=== PATIENT | male | born 1990 ===

== ENCOUNTER 2020-07-09 09:03 | Day surgery (SDC) | payer BC, MEDICAID, SELFPAY ==
[2020-07-05 13:59] VITALS: BMI 33.1
--- NOTE | 2020-07-07 13:57 | HO.ANESPROP2 ---
Documented by User: Rosio Bernard 07/07/20 13:57 HPI - Anesthesia Eval Consult details Narrative: 29yo M for Upper Endoscopy [facility] Past Medical History Medical History (Updated 07/09/20 @ 09:43 by Georgina Pollard) ADHD Allergic rhinitis Anxiety and depression Asthma Carpal tunnel syndrome GERD (gastroesophageal reflux disease) Learning disability Obesity (BMI 30-39.9) Family History Family History Father Medical history unknown Mother Breast cancer Hypertension Surgical History Surgical History History of eye surgery History of placement of ear tubes History of tonsillectomy Social History Social History Smoking Status: Never smoker Use of substances other than those prescribed or required for medical reasons: No Have you been hit, kicked, punched, or otherwise hurt by someone within the past year? If so, by whom?: No Advance Directives: No Advance Directives Information Provided: No Advance Directives on File: No Meds Allergies Allergy/AdvReac Type Severity Reaction Status Date / Time seafood Allergy Swelling Verified 07/09/20 09:27 shellfish derived Allergy Swelling Verified 07/09/20 09:26 Home Medications Medication Instructions Recorded Confirmed Type albuterol sulfate [ProAir HFA] 1 puff INHALATION QID PRN 07/05/20 07/05/20 History omeprazole 40 mg PO DAILY 07/05/20 07/05/20 History Exam Exam Date and Time: July 07, 2020 1357 Height,Weight and Vital Signs: Height 5 ft 5 in Weight 90.265 kg Assessment and Plan Assessment Anesthesia Assessment: Chart Reviewed Documented by User: Georgina Pollard 07/09/20 09:47 [facility] Past Medical History Medical History (Updated 07/09/20 @ 09:43 by Georgina Pollard) ADHD Allergic rhinitis Anxiety and depression Asthma Carpal tunnel syndrome GERD (gastroesophageal reflux disease) Learning disability Obesity (BMI 30-39.9) Family History Family History Father Medical history unknown Mother Breast cancer Hypertension Family history of problems with anesthesia: No Surgical History Surgical History History of eye surgery History of placement of ear tubes History of tonsillectomy History of Problems with Anesthesia: No Social History Social History Smoking Status: Never smoker Use of substances other than those prescribed or required for medical reasons: No Have you been hit, kicked, punched, or otherwise hurt by someone within the past year? If so, by whom?: No Advance Directives: No Advance Directives Information Provided: No Advance Directives on File: No Meds Allergies Allergy/AdvReac Type Severity Reaction Status Date / Time seafood Allergy Swelling Verified 07/09/20 09:27 shellfish derived Allergy Swelling Verified 07/09/20 09:26 Home Medications Medication Instructions Recorded Confirmed Type albuterol sulfate [ProAir HFA] 1 puff INHALATION QID PRN 07/05/20 07/05/20 History omeprazole 40 mg PO DAILY 07/05/20 07/05/20 History Exam Height,Weight and Vital Signs: Vital Signs Temp Pulse Resp BP Pulse Ox 07/09/20 09:28 98.2 F 64 18 103/72 99 Airway Mallampati Class: III TM Dist: >3cm Neck ROM: Full Heart: RRR Lungs: CTAB Assessment and Plan Assessment Anesthesia Assessment: Anesthesia Plan Discussed and Chart Reviewed Final Anesthetic Review NPO: Yes ASA Class: II Final Preanesthetic Review: No Changes in Pt Med Stat, Meds/Allgs Chart Reviewed, Consent Obtained/Reviewed and Anes Risks/Benef Reviewed Patient Risk: Low Procedure Risk: Low Assessment/Block/Sedation in SS: Assess/Block/Sedation-SS Anesthetic Plan Anesthetic Plan: MAC: Disposition: Standard PACU
[2020-07-09 09:28] VITALS: BP 103/72; PULSE 64; RESP 18; TEMP 36.8; O2SAT 99
[2020-07-09] MEDS: Lactated Ringers 1,000 ML 100 ML IVCONT (09:42)
--- NOTE | 2020-07-09 09:54 | MHC.SHP ---
Pre-Procedural Eval Section A The patient is an INPATIENT: No Changes since office visit: No Cold of Flu in the past 2 weeks, No New Medical Problems, No Changes in Medication and No Patient answered all questions The History & Physical has been completed within 30 days and I have reviewed it.: Yes Section B Chief Complaint: GERD Allergies: Allergies Allergy/AdvReac Type Severity Reaction Status Date / Time seafood Allergy Swelling Verified 07/09/20 09:27 shellfish derived Allergy Swelling Verified 07/09/20 09:26 Plan I have reviewed the history and physical and performed a pertinent physical examination on my patient. No changes have occurred unless specified.
--- NOTE | 2020-07-09 10:06 | PM.OP ---
Brief Operative Note Date of Service: 07/09/20 Pre-op diagnosis: gerd Post-op diagnosis: same Procedure: egd Surgeon: Ramin Hedrick Anesthesia: MAC and local Estimated blood loss (mL): 5 Pathology: other (bxs antrum and egj) Condition: stable Disposition: PACU
[2020-07-09 10:08] VITALS: BP 106/50; PULSE 75; RESP 16; TEMP 36.1; O2SAT 98
--- NOTE | 2020-07-09 10:19 | OP_ITS ---
SURGEON: Ramin Hedrick MD INDICATIONS: Gastroesophageal reflux disease. PREOPERATIVE DIAGNOSIS: POSTOPERATIVE DIAGNOSIS: PROCEDURE PERFORMED: Upper endoscopy with biopsy. ESTIMATED BLOOD LOSS: COMPLICATIONS: ANESTHESIA: ASSISTANTS: SPECIMENS: MEDICATIONS: Monitored anesthesia care. DESCRIPTION OF PROCEDURE: History and physical performed. The risks and benefits of the procedure were explained to the patient. Informed consent was obtained. The patient was placed in the left lateral decubitus position. The Olympus video gastroscope was introduced into the esophagus, stomach, and duodenum. Examination was performed and the scope was removed. He tolerated the procedure well and was taken to recovery area in stable condition. FINDINGS: ESOPHAGUS: The esophagus was normal. There was a small sliding hiatal hernia. Biopsies were obtained from the EG junction. There was no esophagitis. Stomach: Stomach showed no evidence of masses, ulcers, or polyps. There was some retained food in the stomach. Antral biopsies were obtained to rule out H pylori. Duodenum: The bulb and second portion were normal. IMPRESSION: Gastroesophageal reflux disease. RECOMMENDATIONS: 1. Follow up the biopsy results. 2. Continue proton pump inhibitor. MD CRISTY Mcmahon/BARTOLO / [id number]
[2020-07-09 10:23] VITALS: BP 103/68; PULSE 60; RESP 16; TEMP 36.1; O2SAT 99
--- NOTE | 2020-07-09 10:36 | HO.POSTANES ---
Post Anesthesia Evaluation Post Anesthesia Evaluation Vital Signs: Vital Signs Temp Pulse Resp BP Pulse Ox 07/09/20 10:23 97 F 60 16 103/68 99 07/09/20 10:08 97 F 75 16 106/50 L 98 07/09/20 09:28 98.2 F 64 18 103/72 99 Anesthesia: Monitored Mental Status: Awake Pain Control: Satisfactory Nausea/Vomiting: None Hydration: Adequate Anesthesia-Related Issues: No Anes. Related Issues
== END 2020-07-09 10:53 ==
LOC: HO.SSS 09:05
PROVIDERS: PCP Internal Medicine; Visit Provider Internal Medicine Gastroenterology
PROC: 0DJ08ZZ Inspection of Upper Intestinal Tract, Via Natural or Artificial Opening Endoscopic (ICD-10-PCS; CPT 43235; principal; 2020-07-09 10:10)
DX: K21.00 Gastro-esophageal reflux disease with esophagitis, without bleeding (principal); K44.9 Diaphragmatic hernia without obstruction or gangrene; Z79.899 Other long term (current) drug therapy
CPT/HCPCS: 43239; 88305; 88342; J3010

== ENCOUNTER 2022-10-20 07:46 | Outpatient (REF) | payer OTHER, SELFPAY ==
[2022-10-20 08:10] LABS: MANUAL DIFF FLAG NO
[2022-10-20 08:19] LABS: Basophils Percent Auto 0.6 % (0-2); Eosinophils Absolute Auto 0.6 X10*3/uL (0.0-0.4); Eosinophils Percent Auto 8.7 % (0-4); Hematocrit 52.8 % (42.0-52.0); Hemoglobin 17.7 g/dl (14.0-18.0); Imm Gran Abs Auto 0.02 X10*3/uL (0.00-0.03); Imm Gran Pct Auto 0.3 % (0.0-0.4); Lymphocytes Absolute Auto 1.7 X10*3/uL (1.2-4.9); Lymphocytes Percent Auto 24.5 % (20-40); Mean Corpuscular HGB Conc 33.5 g/dl (31.0-36.0); Mean Corpuscular Hemoglobin 30.3 pg (27.0-33.0); Mean Corpuscular Volume 90.4 fL (80.0-98.0); Mean Platelet Volume 9.8 fL (9.4-12.4); Monocytes Absolute Auto 0.6 X10*3/uL (0.1-1.2); Monocytes Percent Auto 8.4 % (2-11); Neutrophils Absolute Auto 4.1 x10*3/uL (2.0-8.3); Neutrophils Percent Auto 57.5 % (45-73); Platelet Count 233 X10*3/uL (160-400); Red Blood Count 5.84 X10*6/uL (4.60-5.80); Red Cell Distribution Width 13.5 % (11.0-16.0)
[2022-10-20 08:52] LABS: Alanine Aminotransferase 26 U/L (0-40); Albumin Level 4.5 g/dL (3.5-5.0); Alkaline Phosphatase 85 U/L (39-117); Anion Gap 14 (12-20); Aspartate Amino Transferase 20 U/L (5-37); Bilirubin Total 0.6 mg/dL (0.0-1.0); Blood Urea Nitrogen 20 mg/dL (9-16); Calcium 9.7 mg/dL (8.4-10.2); Carbon Dioxide 25 mmol/L (22-29); Chloride 105 mmol/L (96-108); Cholesterol 192 mg/dL; Estimated Glomerular Filt Rate > 60; Glucose Random 96 mg/dL (60-115); HDL Cholesterol 67 mg/dL; LDL Cholesterol Calculated 117 mg/dl; Sodium 139 mmol/L (135-145); Total Protein 7.3 g/dL (6.5-8.0); Triglycerides 40 mg/dL
[2022-10-20 09:26] LABS: Free T4 (Free Thyroxine) 0.86 ng/dL (0.71-1.85); Thyroid Stimulating Hormone 1.17 uIU/mL (0.32-4.0); Vitamin B12 462 pg/mL (200-900)
== END 2022-10-20 07:47 | disposition home or self-care (01) ==
LOC: HO.LAB 07:46
PROVIDERS: PCP Internal Medicine; Visit Provider Internal Medicine
DX: E66.9 Obesity, unspecified (principal); E78.00 Pure hypercholesterolemia, unspecified
CPT/HCPCS: 36415; 80053; 80061; 82607; 82746; 84439; 84443; 85025

== ENCOUNTER 2023-06-15 13:07 | Outpatient (AMB) | payer OTHER, SELFPAY ==
[2023-06-15 13:09] VITALS: BP 130/84; PULSE 75; O2SAT 99; BMI 32.1
--- NOTE | 2023-06-15 13:09 | A.OFFPC_ITS ---
Vital Signs 06/15/23 13:09 Height 5 ft 5 in Weight 193 lb BMI 32.1 BP 130/84 Blood Pressure Location Lt brachial Position Sitting Pulse 75 Pulse Source Pulse Oximeter Pulse Oximetry (%) 99 Oxygen Delivery Method Room Air Intake Visit Reasons: PE Dance Professor Required: No Teacher Education Director: Not Required per policy Accompanied by: Self / Same As Patient Allergies seafood Allergy (Verified 06/15/23 13:10) Swelling shellfish derived Allergy (Verified 06/15/23 13:10) Swelling Medication List - Last Reconciled 06/15/23 by Davonte Manzano MD albuterol sulfate 90 mcg/actuation (ProAir HFA) 1 puff inhalation QID PRN albuterol sulfate 2.5 mg (3 mL) inhalation QID PRN fluoxetine 40 mg PO QAM methylphenidate HCl ER (Concerta) 54 mg PO DAILY omeprazole 40 mg PO DAILY quetiapine 100 mg PO BEDTIME Tobacco use date assessed: 06/15/23 Dental Screening Dental Screen Date: 06/15/23 Did you have a dental visit in the last 12 months?: No Did you have a dental problem in the last 6 months where you did not have access to dental care?: No Was dental information given to patient?: Patient has dentist HPI PE HPI Details 32 year old obese male with ADHD, asthma , ANA MARIA and gerd. (reschedule for PE) need refill on nebulizer liquid uses only when sick which he did get a cold last month. follow up with psychiatrist Q 3 months and therapist Q week. noted weight loss PFSH Medical History Annual physical exam ADHD Asthma Allergic rhinitis Carpal tunnel syndrome Obesity (BMI 30-39.9) GERD (gastroesophageal reflux disease) Learning disability Surgical History History of eye surgery History of placement of ear tubes History of tonsillectomy Family History Father Medical history unknown Mother Breast cancer Hypertension Maternal Aunt Heart disease Maternal Grandmother Leukemia Paternal Grandmother Breast cancer Social History Housing: Apartment Alcohol intake: never Patient Tobacco Use Status: Never used Tobacco e-Cigarette/Vaping Use: Never Used Second Hand Smoke Exposure: No service: No Current occupational status: employed Current occupational exposures/hazards: No Cognitive needs: No Hearing needs: No Vision needs: No Questionnaire PHQ-9 Over the last 2 weeks, how often have you been bothered by any of the following problems? 1. Little interest or pleasure in doing things: not at all 2. Feeling down, depressed, or hopeless: not at all 3. Trouble falling or staying asleep, or sleeping too much: not at all 4. Feeling tired or having little energy: not at all 5. Poor appetite or overeating: not at all 6. Feeling bad about yourself - or that you are a failure or have let yourself or your family down: not at all 7. Trouble concentrating on things, such as reading the newspaper or watching television: not at all 8. Moving or speaking so slowly that other people could have noticed. Or the opposite - being so fidgety or restless that you have been moving around a lot more than usual: not at all 9. Thoughts that you would be better off or of hurting yourself in some way: not at all Total score: 0 Depression Screening Interpretation: Negative Depression Screening Done: Yes Source: Developed by Drs. Yuval Qiu, Leidy Mccall, Semaj Ruiz and colleagues, with an educational denise from [employer]. Thrive Questionnaire Date Thrive assessed: 06/15/23 I am a: Patient What is your living situation today?: I have a steady place to live Within the past 12 months, did the food you bought not last and you didn't have the money to get more?: Never true Within the past 12 months, did you worry whether your food would run out before you got money to buy more?: Never true Do you have trouble paying for medicines?: No Do you have trouble getting transportation to medical appointments?: No Do you have trouble paying your heating and electricity bill?: No Do you have trouble taking care of your child, family member or friend?: No Do you have trouble with day-to-day activities such as bathing, preparing meals, shopping, managing finances, etc.?: No Are you currently unemployed and looking for a job?: No Are you interested in more education?: No Please select the resources that you would like help with: None AUDIT C Alcohol Use Questionnaire (AUDIT-C) 1. How often do you have a drink containing alcohol?: Never 3. How often do you have six or more drinks on one occasion?: Never Total Score: 0 ANA MARIA-7 AMB Questionnaire ANA MARIA-7 Date ANA MARIA - 7 assessed: 06/15/23 Feeling nervous, anxious, or on edge: 0 = Not at all Not being able to stop or control worryin = Not at all Worrying too much about different things: 0 = Not at all Trouble relaxin = Not at all Being so restless that it is hard to sit still: 0 = Not at all Becoming easily annoyed or irritable: 0 = Not at all Feeling afraid as if something awful might happen: 0 = Not at all Total ANA MARIA-7 score (0-4 normal; 5-9 mild; 10-14 moderate; 15-21 severe): 0 Source: Developed by Drs. Yuval Qiu, Leidy Mccall, Semaj Ruiz and colleagues, with an educational denise from [employer]. Physical exam (Primary Care) Vital Signs: Last Vital Signs Pulse 75 06/15/23 13:09 BP 130/84 06/15/23 13:09 Pulse Ox 99 06/15/23 13:09 Oxygen Delivery Method Room Air 06/15/23 13:09 BMI result Body Mass Index 32.1 Tobacco/Smoking Status: Tobacco use Status Tobacco use date assessed 06/15/23 06/15/23 13:11 Patient Tobacco Use Status Never used Tobacco 06/15/23 13:11 e-Cigarette/Vaping Use Never Used 06/15/23 13:11 PHQ-9: PHQ-9 Score PHQ-9: Total score 0 06/15/23 13:11 Depression Screening Interpretation: Negative Thrive Assessment: Date of Thrive Assessment Date Thrive assessed 06/15/23 06/15/23 13:11 Const General: alert; No acute distress Eyes Conjunctivae: conjunctivae normal Resp Auscultation: clear to auscultation bilaterally Cardio Rate: regular rate Rhythm: regular rhythm GI Inspection: Yes normal to inspection Extrem General: Yes normal to inspection and No edema Assessment and Plan Assessment & Plan (1) GERD (gastroesophageal reflux disease): Code(s): K21.9 - Gastro-esophageal reflux disease without esophagitis Qualifiers: Esophagitis presence: with esophagitis Esophagitis bleeding: without hemorrhage Qualified Code(s): K21.00 - Gastro-esophageal reflux disease with esophagitis, without bleeding Plan: Avoid the foods that causes that usually spicy foods, tomato products, juices, coffee, soda and foods that your sensitive to. After eating do not lie down, allow 3-4 hours before in lie down. And keep the head of bed above 30 degrees to avoid the acid from going up. (2) Obesity (BMI 30-39.9): Code(s): E66.9 - Obesity, unspecified Plan: Continue with diet and exercise (3) Asthma: Comment: Inhaler prn Code(s): J45.909 - Unspecified asthma, uncomplicated Qualifiers: Asthma severity: mild Asthma persistence: intermittent Asthma complication type: uncomplicated Qualified Code(s): J45.20 - Mild intermittent asthma, uncomplicated Plan: Inhaler use mostly when has an upper respiratory tract infection. Refill done for the nebulizer albuterol (4) ADHD: Code(s): F90.9 - Attention-deficit hyperactivity disorder, unspecified type Qualifiers: Attention deficit-hyperactivity disorder type: predominantly inattentive Qualified Code(s): F90.0 - Attention-deficit hyperactivity disorder, predominantly inattentive type Plan: Continue with present medication (5) Generalized anxiety disorder: Comment: Weekly [facility] Counseling Code(s): F41.1 - Generalized anxiety disorder Plan: Continue with counseling and therapy Medications: Refilled albuterol sulfate 2.5 mg (3 mL) inhalation QID PRN 180 mL 0RF shortness of breath or wheezing J45.20 - Mild intermittent asthma, uncomplicated Coding Level of Care Code Est Pt Level 4 (89454) Diagnoses Gastroesophageal reflux disease with esophagitis without hemorrhage K21.00 Esophagitis presence: with esophagitis Esophagitis bleeding: without hemorrhage Obesity (BMI 30-39.9) E66.9 Mild intermittent asthma without complication J45.20 Asthma severity: mild Asthma persistence: intermittent Asthma complication type: uncomplicated Attention deficit hyperactivity disorder (ADHD), predominantly inattentive type F90.0 Attention deficit-hyperactivity disorder type: predominantly inattentive Generalized anxiety disorder F41.1
== END 2023-06-15 14:33 | disposition home or self-care (01) ==
PROVIDERS: PCP Internal Medicine; Visit Provider Internal Medicine
DX: K21.00 Gastro-esophageal reflux disease with esophagitis, without bleeding (principal); E66.9 Obesity, unspecified; Z68.32 Body mass index [BMI] 32.0-32.9, adult; J45.20 Mild intermittent asthma, uncomplicated; F90.0 Attention-deficit hyperactivity disorder, predominantly inattentive type; F41.1 Generalized anxiety disorder
CPT/HCPCS: 99214

== ENCOUNTER 2023-09-21 08:08 | Outpatient (AMB) | payer OTHER, SELFPAY ==
--- NOTE | 2023-09-21 08:51 | AM.OFFWIN_ITS ---
Intake Vital Signs 09/21/23 08:52 Height 5 ft 5 in Weight 194 lb BMI 32.3 BP 122/90 H Blood Pressure Location Lt brachial Position Sitting Pulse 88 Pulse Source Pulse Oximeter Temp 97.7 F Temp Source Temporal Artery Scan Pulse Oximetry (%) 96 Oxygen Delivery Method Room Air Intake Visit Reasons: EP Cold symptoms/Asthma Intake Note: pt is here today for cold symptoms sore throat and asthma started sunday Patient Tobacco Use Status: Never used Tobacco Allergies seafood Allergy (Verified 09/21/23 08:56) Swelling shellfish derived Allergy (Verified 09/21/23 08:56) Swelling Do you need a note to return to daycare/school/sports/work: No HPI EP Cold symptoms/Asthma HPI Details Patient is a 32-year-old male with underlying asthma who reports that he developed cold symptoms a few days ago, and this has aggravated his asthma as he has a frequent cough. It is waking him up at night and he is using albuterol nebulizer in the middle of the night. He reports that he ran out of his inhaler and needs a refill. He has not been using his nebulizer during the day. He has not tested for COVID at home yet. No weakness, dizziness, chest pain, current shortness of breath, myalgias or malaise, fever or chills, nausea vomiting or diarrhea, or other significant associated symptoms. [facility] Medical History Annual physical exam ADHD Asthma Allergic rhinitis Carpal tunnel syndrome Obesity (BMI 30-39.9) GERD (gastroesophageal reflux disease) Learning disability Surgical History History of eye surgery History of placement of ear tubes History of tonsillectomy Family History Father Medical history unknown Mother Breast cancer Hypertension Maternal Aunt Heart disease Maternal Grandmother Leukemia Paternal Grandmother Breast cancer Social History Housing: Apartment Alcohol intake: never Patient Tobacco Use Status: Never used Tobacco e-Cigarette/Vaping Use: Never Used Second Hand Smoke Exposure: No service: No Current occupational status: employed Current occupational exposures/hazards: No Cognitive needs: No Hearing needs: No Vision needs: No Review of Systems Const All systems reviewed & are unremarkable except as noted in HPI and below Physical Exam Vital Signs: Last Vital Signs Temp 97.7 F 09/21/23 08:52 Pulse 88 09/21/23 08:52 BP 122/90 H 09/21/23 08:52 Pulse Ox 96 09/21/23 08:52 Oxygen Delivery Method Room Air 09/21/23 08:52 BMI result Body Mass Index 32.3 Const General: cooperative, comfortable, no acute distress, alert, awake, Physically active, ill appearing (cough) acutely, tired appearing and well groomed; No anxious, diaphoretic, intoxicated appearing or poor hygiene Nutritional Appearance: average body habitus Orientation/consciousness: oriented to person Limitations: no limitations HEENT Head: Yes normal to inspection, Yes normocephalic and Yes atraumatic Ears: hearing grossly normal bilaterally, external ears normal and Abnormal EAC present (some cerumen) General nose exam: Normal external nose present, Abnormal mucous membranes and turbinates present and Nasal discharge present Face and sinus: Yes normal facial exam, Yes sinuses nontender and Yes face symmetric Mouth: Normal oral and palatal mucosa present, lip normal and tongue normal Throat: Yes abnormal tonsil (mildly erythematous bilaterally), No peritonsillar mass, No uvular edema and No cobblestoning Eyes General: appearance normal, both eyes and all related structures Neck Neck: Yes normal visual inspection Chest Chest palpation & inspection: normal palpation of entire chest wall Resp Effort & Inspection: normal respiratory effort, able to speak in complete sentences, normal respiratory pattern, no audible wheezes, Actively coughing (frequent) Quality: actively coughing, respiratory effort not decreased, no grunting, not labored, no nasal flaring, no respiratory distress, no retractions, no stridor, not tachypneic, no tripod positioning, no use of accessory muscles, prolonged expiratory phase and symmetric chest movement Auscultation: clear to auscultation bilaterally, no crackles, no rales, no rhonchi, no wheezes, diminished lung sounds bilateral and No rub present Cardio Palpation: normal PMI Rate: regular rate Rhythm: regular rhythm Heart sounds: S1 normal heart sound present and S2 normal heart sound present Skin Other: Good color, warm and dry Neuro General: oriented to person Psych Appearance: grossly normal Mental Status: mental status grossly normal Speech and movement: Normal speech and movement present Affect: normal affect Attitude: cooperative Thought process: Normal thought process present Insight: Good insight present (Psych) Judgement: Good judgement present (Psych) Results AMB Rapid Strep AMB Rapid Strep Negative Last Edit by Edgardo Denton MA on 09/21/23 09:26 Results Reviewed Results Reviewed: Laboratory Last Values Strep Scn [facility] Negative 09/21/23 09:26 Assessment & Plan Assessment & Plan (1) Viral syndrome: Code(s): B34.9 - Viral infection, unspecified Plan: Patient with apparent acute upper respiratory infection, pending RSV flu and COVID results. It is aggravating his asthma, and he is needing to wake in the middle of the night to use his nebulizer. Is not as symptomatic during the day however and while he did have recurrent dry cough in the office, there was no wheezing, apparent dyspnea or work of breathing on exam. Due to night time shortness of breath however, and coughing fits, I put him on a course of steroids and wrote him for a course of antibiotics, as well as refilled his nebulized albuterol and inhaled. He should monitor symptoms and follow up if they persist or worsen. He knows to go to the emergency department with worrisome symptoms. Orders: Orders SARS-CoV2/FLU/RSV 09/21/23 R05.9 - Cough, unspecified Medications: New azithromycin take 500 mg today (day 1), then 250 mg for 4 days (days 2-5) PO 6 tabs 0RF prednisone then take 3 tabs for 3 days, then 2 tabs for 3 days, then 1 tab for 3 days. 40 mg (4 x 10 mg) PO DAILY 30 tabs 0RF 3 days Refilled albuterol sulfate 2.5 mg (3 mL) inhalation QID PRN 180 mL 0RF shortness of breath or wheezing J45.20 - Mild intermittent asthma, uncomplicated albuterol sulfate 90 mcg/actuation (ProAir HFA) 1 puff inhalation QID PRN 8.5 grams 3RF Wheezing J45.20 - Mild intermittent asthma, uncomplicated Coding Level of Care Code Est Pt Level 4 (20231) Diagnoses Viral syndrome B34.9
[2023-09-21 08:52] VITALS: BP 122/90; PULSE 88; TEMP 36.5; O2SAT 96; BMI 32.3
== END 2023-09-21 12:20 | disposition home or self-care (01) ==
PROVIDERS: PCP Internal Medicine; Visit Provider Physician Assistant Medical
DX: B34.9 Viral infection, unspecified (principal)
CPT/HCPCS: 99214

== ENCOUNTER 2023-09-21 10:29 | Outpatient (REF) | payer OTHER, SELFPAY ==
[2023-09-21 11:28] LABS: Influenza A PCR NEGATIVE (Negative); Influenza B PCR POSITIVE (Negative); Resp Syncy Virus RNA Qual PCR NEGATIVE (Negative); SARS COV2 PCR INHOUSE NEGATIVE (Negative)
== END 2023-09-21 10:30 | disposition home or self-care (01) ==
LOC: HO.HMGCLNP 10:29
PROVIDERS: Visit Provider Physician Assistant Medical
DX: R05.9 Cough, unspecified (principal)
CPT/HCPCS: 0241U

== ENCOUNTER 2023-10-15 14:36 | Outpatient (AMB) | payer OTHER, SELFPAY ==
[2023-10-15 14:38] VITALS: BP 128/72; PULSE 58; O2SAT 98; BMI 30.4
--- NOTE | 2023-10-15 14:38 | A.OFFPC_ITS ---
Vital Signs 10/15/23 14:38 Height 5 ft 5 in Weight 183 lb BMI 30.4 BP 128/72 Blood Pressure Location Lt brachial Position Sitting Pulse 58 Pulse Source Pulse Oximeter Pulse Oximetry (%) 98 Oxygen Delivery Method Room Air Intake Visit Reasons: ADHD Allergies seafood Allergy (Verified 10/15/23 14:39) Swelling shellfish derived Allergy (Verified 10/15/23 14:39) Swelling Medication List - Last Reconciled 10/15/23 by Davonte Manzano MD albuterol sulfate 2.5 mg (3 mL) inhalation QID PRN albuterol sulfate 90 mcg/actuation (ProAir HFA) 1 puff inhalation QID PRN clotrimazole 1% 1 appl topical BID 4 weeks fluoxetine 40 mg PO QAM methylphenidate HCl ER (Concerta) 54 mg PO DAILY omeprazole 40 mg PO DAILY quetiapine 100 mg PO BEDTIME Tobacco use date assessed: 10/15/23 Dental Screening Dental Screen Date: 06/15/23 HPI ADHD HPI Details 32-year-old obese male with ADHD asthma GERD and generalized anxiety disorder. Noted 11 lb weight loss. Congratulations. Patient last seen in June 2023. Review of the notes in September 2023 Urgent Center for upper respiratory tract infection . better resp [facility] Medical History Annual physical exam ADHD Asthma Allergic rhinitis Carpal tunnel syndrome Obesity (BMI 30-39.9) GERD (gastroesophageal reflux disease) Learning disability Surgical History History of eye surgery History of placement of ear tubes History of tonsillectomy Family History Father Medical history unknown Mother Breast cancer Hypertension Maternal Aunt Heart disease Maternal Grandmother Leukemia Paternal Grandmother Breast cancer Social History Housing: Apartment Alcohol intake: never Patient Tobacco Use Status: Never used Tobacco e-Cigarette/Vaping Use: Never Used Second Hand Smoke Exposure: No service: No Current occupational status: employed Current occupational exposures/hazards: No Cognitive needs: No Hearing needs: No Vision needs: No Questionnaire PHQ-9 Over the last 2 weeks, how often have you been bothered by any of the following problems? 1. Little interest or pleasure in doing things: not at all 2. Feeling down, depressed, or hopeless: not at all 3. Trouble falling or staying asleep, or sleeping too much: not at all 4. Feeling tired or having little energy: not at all 5. Poor appetite or overeating: not at all 6. Feeling bad about yourself - or that you are a failure or have let yourself or your family down: not at all 7. Trouble concentrating on things, such as reading the newspaper or watching television: not at all 8. Moving or speaking so slowly that other people could have noticed. Or the opposite - being so fidgety or restless that you have been moving around a lot more than usual: not at all 9. Thoughts that you would be better off or of hurting yourself in some way: not at all Total score: 0 Depression Screening Interpretation: Negative Depression Screening Done: Yes Source: Developed by Drs. Yuval Qiu, Leidy Mccall, Semaj Ruiz and colleagues, with an educational denise from [employer]. Thrive Questionnaire Date Thrive assessed: 06/15/23 AUDIT C Alcohol Use Questionnaire (AUDIT-C) 1. How often do you have a drink containing alcohol?: Never 3. How often do you have six or more drinks on one occasion?: Never Total Score: 0 ANA MARIA-7 AMB Questionnaire ANA MARIA-7 Date ANA MARIA - 7 assessed: 06/15/23 Source: Developed by Drs. Yuval Qiu, Leidy Mccall, Semaj Ruiz and colleagues, with an educational denise from [employer]. Physical exam (Primary Care) Vital Signs: Last Vital Signs Pulse 58 10/15/23 14:38 BP 128/72 10/15/23 14:38 Pulse Ox 98 10/15/23 14:38 Oxygen Delivery Method Room Air 10/15/23 14:38 BMI result Body Mass Index 30.4 Tobacco/Smoking Status: Tobacco use Status Tobacco use date assessed 10/15/23 10/15/23 14:55 Patient Tobacco Use Status Never used Tobacco 10/15/23 14:42 e-Cigarette/Vaping Use Never Used 10/15/23 14:42 PHQ-9: PHQ-9 Score PHQ-9: Total score 0 10/15/23 14:55 Depression Screening Interpretation: Negative Thrive Assessment: Date of Thrive Assessment Date Thrive assessed 06/15/23 10/15/23 14:42 Const General: alert; No acute distress Eyes Conjunctivae: conjunctivae normal Resp Auscultation: clear to auscultation bilaterally Cardio Rate: regular rate Rhythm: regular rhythm GI Inspection: Yes normal to inspection Extrem General: Yes normal to inspection and No edema Assessment and Plan Assessment & Plan (1) Obesity (BMI 30-39.9): Code(s): E66.9 - Obesity, unspecified Plan: Continue with diet and exercise. (2) GERD (gastroesophageal reflux disease): Code(s): K21.9 - Gastro-esophageal reflux disease without esophagitis Qualifiers: Esophagitis presence: with esophagitis Esophagitis bleeding: without hemorrhage Qualified Code(s): K21.00 - Gastro-esophageal reflux disease with esophagitis, without bleeding Plan: Avoid the foods that causes that usually spicy foods, tomato products, juices, coffee, soda and foods that your sensitive to. After eating do not lie down, allow 3-4 hours before in lie down. And keep the head of bed above 30 degrees to avoid the acid from going up. (3) Asthma: Comment: Inhaler prn Code(s): J45.909 - Unspecified asthma, uncomplicated Qualifiers: Asthma severity: mild Asthma persistence: intermittent Asthma complication type: uncomplicated Qualified Code(s): J45.20 - Mild intermittent asthma, uncomplicated Plan: Continue with the albuterol as needed (4) ADHD: Code(s): F90.9 - Attention-deficit hyperactivity disorder, unspecified type Qualifiers: Attention deficit-hyperactivity disorder type: predominantly inattentive Qualified Code(s): F90.0 - Attention-deficit hyperactivity disorder, predominantly inattentive type Plan: Continue with present medication blood pressure is under control (5) Generalized anxiety disorder: Comment: Weekly [facility] Counseling Code(s): F41.1 - Generalized anxiety disorder Plan: Continue with present medication and counselling (6) Tinea pedis: Code(s): B35.3 - Tinea pedis Medications: New clotrimazole 1% 1 appl topical BID 4 weeks 45 grams 1RF B35.3 - Tinea pedis Coding Level of Care Code Est Pt Level 4 (21959) Diagnoses Obesity (BMI 30-39.9) E66.9 Gastroesophageal reflux disease with esophagitis without hemorrhage K21.00 Esophagitis presence: with esophagitis Esophagitis bleeding: without hemorrhage Mild intermittent asthma without complication J45.20 Asthma severity: mild Asthma persistence: intermittent Asthma complication type: uncomplicated Attention deficit hyperactivity disorder (ADHD), predominantly inattentive type F90.0 Attention deficit-hyperactivity disorder type: predominantly inattentive Generalized anxiety disorder F41.1 Tinea pedis B35.3
== END 2023-10-15 15:28 | disposition home or self-care (01) ==
PROVIDERS: PCP Internal Medicine; Visit Provider Internal Medicine
DX: K21.00 Gastro-esophageal reflux disease with esophagitis, without bleeding (principal); Z68.30 Body mass index [BMI] 30.0-30.9, adult; J45.20 Mild intermittent asthma, uncomplicated; E66.9 Obesity, unspecified; F90.0 Attention-deficit hyperactivity disorder, predominantly inattentive type; F41.1 Generalized anxiety disorder; B35.3 Tinea pedis
CPT/HCPCS: 99214

== ENCOUNTER 2024-04-07 13:45 | Outpatient (AMB) | payer OTHER, SELFPAY ==
--- NOTE | 2024-04-07 13:55 | A.OFFPC_ITS ---
Vital Signs 04/07/24 13:58 Height 5 ft 5 in Weight 186 lb BMI 30.9 BP 130/80 Blood Pressure Location Lt brachial Position Sitting Pulse 51 Pulse Source Pulse Oximeter Pulse Oximetry (%) 97 Oxygen Delivery Method Room Air Intake Visit Reasons: Follow Up Allergies seafood Allergy (Verified 10/15/23 14:39) Swelling shellfish derived Allergy (Verified 10/15/23 14:39) Swelling Tobacco use date assessed: 10/15/23 Dental Screening Dental Screen Date: 06/15/23 HPI Follow Up HPI Details 33-year-old obese male with GERD asthma ADHD generalized anxiety disorder coming in for follow-up last seen in 10/22/2023. [facility]LY [facility], [facility] Medical History Annual physical exam ADHD Asthma Allergic rhinitis Carpal tunnel syndrome Obesity (BMI 30-39.9) GERD (gastroesophageal reflux disease) Learning disability Surgical History History of eye surgery History of placement of ear tubes History of tonsillectomy Family History Father Medical history unknown Mother Breast cancer Hypertension Maternal Aunt Heart disease Maternal Grandmother Leukemia Paternal Grandmother Breast cancer Social History Housing: Apartment Alcohol intake: never Patient Tobacco Use Status: Never used Tobacco e-Cigarette/Vaping Use: Never Used Second Hand Smoke Exposure: No service: No Current occupational status: employed Current occupational exposures/hazards: No Cognitive needs: No Hearing needs: No Vision needs: No Questionnaire Thrive Questionnaire Date Thrive assessed: 06/15/23 AUDIT C Alcohol Use Questionnaire (AUDIT-C) 1. How often do you have a drink containing alcohol?: Never 3. How often do you have six or more drinks on one occasion?: Never Total Score: 0 ANA MARIA-7 AMB Questionnaire ANA MARIA-7 Date ANA MARIA - 7 assessed: 06/15/23 Source: Developed by Drs. Yuval Qiu, Leidy Mccall, Semaj Ruiz and colleagues, with an educational denise from [employer]. Physical exam (Primary Care) Vital Signs: Last Vital Signs Pulse 51 04/07/24 13:58 BP 130/80 04/07/24 13:58 Pulse Ox 97 04/07/24 13:58 Oxygen Delivery Method Room Air 11/04/24 13:58 BMI result Body Mass Index 30.9 Tobacco/Smoking Status: Tobacco use Status Tobacco use date assessed 10/15/23 04/07/24 13:58 Patient Tobacco Use Status Never used Tobacco 04/07/24 13:58 e-Cigarette/Vaping Use Never Used 04/07/24 13:58 Thrive Assessment: Date of Thrive Assessment Date Thrive assessed 06/15/23 04/07/24 13:58 Const General: alert; No acute distress Eyes Conjunctivae: conjunctivae normal Resp Auscultation: clear to auscultation bilaterally Cardio Rate: regular rate Rhythm: regular rhythm GI Inspection: Yes normal to inspection Extrem General: Yes normal to inspection and No edema Office Procedures Flu Questionnaire Does the patient have a severe egg allergy?: No Does the patient have severe life threatening allergies?: No Does the patient have a fever or illness today?: No Has the patient ever had Guillain-Houston Syndrome?: No Has the patient ever had any past reaction to a flu shot?: No Immunizations Fluarix Triv [id number] (PF) 45 mcg (15 mcg x 3)/0.5 mL IM syringe Performing Provider: Davonte Manzano MD Performing Location[facility] [place] [place] [facility] Administered by: ACE Aponte on 04/07/24 14:03 Dose Route Admin Location Dispensed Lot Number Expiration Date [facility] [employer] 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 0.5 mL IM Left Deltoid 0.5 mL [id number] 12/01/24 32937-987-48 [facility] V[facility] Given Date VIS Provided VIS Publication Date 04/07/24 Single Vaccine 21 Eligibility Eligibility Date Funding Source Not [facility] Eligible 04/07/24 Private Coding Level of Care Code Est Pt Level 4 (53699) Diagnoses Obesity (BMI 30-39.9) E66.9 Gastroesophageal reflux disease with esophagitis without hemorrhage K21.00 Esophagitis presence: with esophagitis Esophagitis bleeding: without hemorrhage Mild intermittent asthma without complication J45.20 Asthma severity: mild Asthma persistence: intermittent Asthma complication type: uncomplicated Attention deficit hyperactivity disorder (ADHD), predominantly inattentive type F90.0 Attention deficit-hyperactivity disorder type: predominantly inattentive Generalized anxiety disorder F41.1 Assessment & Plan Assessment & Plan (1) Obesity (BMI 30-39.9): Code(s): E66.9 - Obesity, unspecified Category: Medical Plan: Diet and exercise (2) GERD (gastroesophageal reflux disease): Code(s): K21.9 - Gastro-esophageal reflux disease without esophagitis Category: Medical Qualifiers: Esophagitis presence: with esophagitis Esophagitis bleeding: without hemorrhage Qualified Code(s): K21.00 - Gastro-esophageal reflux disease with esophagitis, without bleeding Plan: Avoid the foods that causes that usually spicy foods, tomato products, juices, coffee, soda and foods that your sensitive to. After eating do not lie down, allow 3-4 hours before in lie down. And keep the head of bed above 30 degrees to avoid the acid from going up. (3) Asthma: Comment: Inhaler prn Code(s): J45.909 - Unspecified asthma, uncomplicated Category: Medical Qualifiers: Asthma severity: mild Asthma persistence: intermittent Asthma complication type: uncomplicated Qualified Code(s): J45.20 - Mild intermittent asthma, uncomplicated Plan: Continue with albuterol as needed controlled but need refill (4) ADHD: Code(s): F90.9 - Attention-deficit hyperactivity disorder, unspecified type Category: Medical Qualifiers: Attention deficit-hyperactivity disorder type: predominantly inattentive Qualified Code(s): F90.0 - Attention-deficit hyperactivity disorder, predominantly inattentive type Plan: Continue with present medication (5) Generalized anxiety disorder: Comment: Weekly [facility] Counseling Code(s): F41.1 - Generalized anxiety disorder Category: Medical Plan: Continue with counseling and therapy. Orders: Orders Influenza [id number] Immunization Today Z23 - Encounter for immunization Medications: Changed From albuterol sulfate 90 mcg/actuation (ProAir HFA) 1 puff inhalation QID PRN 8.5 grams 3RF Wheezing J45.20 - Mild intermittent asthma, uncomplicated To albuterol sulfate 90 mcg/actuation 1 puff inhalation QID PRN 8.5 grams 0RF Wheezing J45.20 - Mild intermittent asthma, uncomplicated Refilled omeprazole 40 mg PO DAILY 90 caps 2RF K21.00 - Gastro-esophageal reflux disease with esophagitis, without bleeding
[2024-04-07 13:58] VITALS: BP 130/80; PULSE 51; O2SAT 97; BMI 30.9
== END 2024-04-07 14:55 | disposition home or self-care (01) ==
LOC: HO.HMCH 13:53
PROVIDERS: PCP Internal Medicine; Visit Provider Internal Medicine
DX: K21.00 Gastro-esophageal reflux disease with esophagitis, without bleeding (principal); E66.9 Obesity, unspecified; Z68.30 Body mass index [BMI] 30.0-30.9, adult; J45.20 Mild intermittent asthma, uncomplicated; F90.0 Attention-deficit hyperactivity disorder, predominantly inattentive type; F41.1 Generalized anxiety disorder

== ENCOUNTER → 2024-04-07 13:45 | Outpatient (BNVA) | payer OTHER, SELFPAY | PROVIDERS: PCP Internal Medicine; Visit Provider Internal Medicine | DX: E66.9 Obesity, unspecified (principal); K21.00 Gastro-esophageal reflux disease with esophagitis, without bleeding; J45.20 Mild intermittent asthma, uncomplicated; F90.0 Attention-deficit hyperactivity disorder, predominantly inattentive type; F41.1 Generalized anxiety disorder | CPT/HCPCS: 90471; 90656; 99212 ==

== ENCOUNTER 2024-06-27 08:15 | Outpatient (AMB) | payer OTHER, SELFPAY ==
[2024-06-27 08:49] VITALS: BP 122/70; PULSE 70; O2SAT 98; BMI 31.5
--- NOTE | 2024-06-27 08:49 | AM.OFFWIN_ITS ---
Intake Vital Signs 3 06/27/24 08:49 Height 5 ft 5 in Weight 189 lb 4 oz BMI 31.5 BP 122/70 Blood Pressure Location Rt brachial Position Sitting Pulse 70 Pulse Source Pulse Oximeter Pulse Oximetry (%) 98 Oxygen Delivery Method Room Air Intake Visit Reasons: EP swollen, itchy, watery RT eye Patient Tobacco Use Status: Never used Tobacco Allergies seafood Allergy (Verified 06/27/24 08:53) Swelling shellfish derived Allergy (Verified 06/27/24 08:53) Swelling Medication List - Last Reconciled 06/27/24 by Kirby Benjamin MD albuterol sulfate 2.5 mg (3 mL) inhalation QID PRN albuterol sulfate 90 mcg/actuation 1 puff inhalation QID PRN clotrimazole 1% 1 appl topical BID 4 weeks fluoxetine 40 mg PO QAM methylphenidate HCl ER (Concerta) 54 mg PO DAILY omeprazole 40 mg PO DAILY quetiapine 100 mg PO BEDTIME Do you need a note to return to daycare/school/sports/work: No HPI EP swollen, itchy, watery RT eye 2 HPI0 Details Chief Complaint The patient presents with right eye pain and redness, . History of Present Illness - The patient is a 33 year old male pres enting with complaints of redness and pain in the right eye, persisting since Sunday. - Symptoms began with itching, then redn ess, potentially related to canine contact on the eye. - Management included self-administered evpc-mhv-olyoiaz drops, albeit symptoms worsened thereafter. - Reports excessive sensitivity to light and a sensation of pressure causing sleeplessness. - A right corneal abrasion was identifie d upon examination, fluorescein test Plan A corneal abrasion in the right eye is suspected due to accidental trauma from a pet. The recommended treatment includes the use of antibiotic eye drops to prevent infection and an eye patch on the right side to protect from light exposure and minimize pain. The patient should follow this treatment plan for one week and return for re-evaluation. If symptoms worsen, immediate contact with Dr. Manzano is advised. Patient Instructions - Use the prescribed antibiotic eye drop s as directed. - Wear an eye patch over the right eye t o protect from light and reduce pain. - Follow the treatment plan for a minimu m of one week. - Schedule a follow-up visit next Sunday for reassessment. - Contact Dr. Po promptly if symptoms wo rsen or do not improve. Review of Systems - Eyes: Reports redness, itching, pain, and sensitivity to light. Constitutional: No fever no chills Respiratory: no Cough, no shortness a breath Cardiovascular: no palpitations, no chest pains gastrointestinal: No nausea no vomiting no diarrhea [employer]: No headache no blurring of vision skin: No rash extremities: As per history [facility] Medical History Annual physical exam ADHD Asthma Allergic rhinitis Carpal tunnel syndrome Obesity (BMI 30-39.9) GERD (gastroesophageal reflux disease) Learning disability Surgical History History of eye surgery History of placement of ear tubes History of tonsillectomy Family History Father Medical history unknown Mother Breast cancer Hypertension Maternal Aunt Heart disease Maternal Grandmother Leukemia Paternal Grandmother Breast cancer Social History Housing: Apartment Alcohol intake: never Patient Tobacco Use Status: Never used Tobacco e-Cigarette/Vaping Use: Never Used Second Hand Smoke Exposure: No service: No Current occupational status: employed Current occupational exposures/hazards: No Cognitive needs: No Hearing needs: No Vision needs: No Physical Exam Vital Signs: Last Vital Signs Pulse 70 06/27/24 08:49 BP 122/70 06/27/24 08:49 Pulse Ox 98 06/27/24 08:49 Oxygen Delivery Method Room Air 06/27/24 08:49 BMI result Body Mass Index 31.5 Const General: no acute distress Orientation/consciousness: patient oriented x3 Eyes Eyes/upper lids images: 2 1. Small uptake of fluorescein, conjunctiva injected, mild photophobia present Resp Effort & Inspection: normal respiratory effort and able to speak in complete sentences Neuro General: patient oriented x3 Psych Mental Status: mental status grossly normal Assessment & Plan Assessment & Plan (1) Corneal abrasion, right: Code(s): S05.01XA - Injury of conjunctiva and corneal abrasion without foreign body, right eye, initial encounter Qualifiers: Encounter type: initial encounter Qualified Code(s): S05.01XA - Injury of conjunctiva and corneal abrasion without foreign body, right eye, initial encounter Plan Plan A corneal abrasion in the right eye is suspected due to accidental trauma from a pet. The recommended treatment includes the use of antibiotic eye drops to prevent infection and an eye patch on the right side to protect from light exposure and minimize pain. The patient should follow this treatment plan for one week and return for re-evaluation. If symptoms worsen, immediate contact with Dr. Manzano is advised. Patient Instructions - Use the prescribed antibiotic eye drops as directed. - Wear an eye patch over the right eye to protect from light and reduce pain. - Follow the treatment plan for a minimum of one week. - Schedule a follow-up visit next Sunday for reassessment. - Contact Dr. Manzano promptly if symptoms worsen or do not impro Medications: New 2 polymyxin B sulf-trimethoprim 10,000 unit- 1 mg/mL while awake; no more than 6 doses in 24 hours 1 drp ophthalmic (eye) Q3H 7 days 10 mL 0RF [Eye patch right] As directed 1 ea 0RF S05.01XA - Injury of conjunctiva and corneal abrasion without foreign body, right eye, initial encounter Coding Level of Care Code Est Pt Level 4 (26011) Diagnoses Abrasion of right cornea, initial encounter S05.01XA Encounter type: initial encounter
== END 2024-06-27 09:16 | disposition home or self-care (01) ==
PROVIDERS: PCP Internal Medicine; Visit Provider Internal Medicine
DX: S05.01XA Injury of conjunctiva and corneal abrasion without foreign body, right eye, initial encounter (principal)

== ENCOUNTER → 2024-06-27 08:15 | Outpatient (BNVA) | payer OTHER, SELFPAY | PROVIDERS: PCP Internal Medicine; Visit Provider Internal Medicine | DX: S05.01XA Injury of conjunctiva and corneal abrasion without foreign body, right eye, initial encounter (principal) | CPT/HCPCS: 99212 ==

== ENCOUNTER 2024-07-04 08:14 | Outpatient (AMB) | payer OTHER, SELFPAY ==
--- NOTE | 2024-07-04 08:32 | MHC.OFFWIV ---
Intake Vital Signs 07/04/24 08:39 Height 5 ft 5 in Weight 186 lb BMI 30.9 BP 114/70 Blood Pressure Location Rt brachial Position Sitting Respiration 14 Pulse 78 Pulse Source Pulse Oximeter Temp 98.2 F Temp Source Oral Pulse Oximetry (%) 95 Oxygen Delivery Method Room Air Intake Visit Reasons: EP recheck eye, congestion, cough Intake Note: Pt is here today c/o chest congestion and coughing and to re-check Rt eye Patient Tobacco Use Status: Never used Tobacco Allergies seafood Allergy (Verified 07/04/24 08:42) Swelling shellfish derived Allergy (Verified 07/04/24 08:42) Swelling HPI HPI Comments History of Present Illness Details 33 y/o male patient who presents to the walk in clinic with c/o cough and chest congestion for few days. He has been taking OTC cough medicine with good symptom relief. He was diagnosed with right eye Corneal Abrasion and treated with Abx eye drops. Pt reports great improvement - denies vision changes, and denies eye pain. [facility] Medical History Annual physical exam ADHD Asthma Allergic rhinitis Carpal tunnel syndrome Obesity (BMI 30-39.9) GERD (gastroesophageal reflux disease) Learning disability Surgical History History of eye surgery History of placement of ear tubes History of tonsillectomy Family History Father Medical history unknown Mother Breast cancer Hypertension Maternal Aunt Heart disease Maternal Grandmother Leukemia Paternal Grandmother Breast cancer Social History Housing: Apartment Alcohol intake: never Patient Tobacco Use Status: Never used Tobacco e-Cigarette/Vaping Use: Never Used Second Hand Smoke Exposure: No service: No Current occupational status: employed Current occupational exposures/hazards: No Cognitive needs: No Hearing needs: No Vision needs: No Review of Systems Const All systems reviewed & are unremarkable except as noted in HPI and below Physical Exam Vital Signs: Last Vital Signs Temp 98.2 F 07/04/24 08:39 Pulse 78 07/04/24 08:39 Resp 14 07/04/24 08:39 BP 114/70 07/04/24 08:39 Pulse Ox 95 07/04/24 08:39 Oxygen Delivery Method Room Air 07/04/24 08:39 BMI result Body Mass Index 30.9 Const General: cooperative and comfortable Nutritional Appearance: overweight Orientation/consciousness: patient oriented x3 Eyes Conjunctivae: conjunctivae normal Sclerae: sclerae normal Corneas: corneas normal Pupils: Equal, round and reactive pupils present EOM: EOMs intact bilaterally Resp Effort & Inspection: normal respiratory effort and able to speak in complete sentences Auscultation: clear to auscultation bilaterally, no crackles, no rales, no rhonchi and no wheezes Cardio Heart sounds: S1 normal heart sound present and S2 normal heart sound present Neuro General: patient oriented x3 Cranial nerves: Yes Equal, round and reactive pupils present Assessment & Plan Assessment & Plan (1) Corneal abrasion, right: Code(s): S05.01XA - Injury of conjunctiva and corneal abrasion without foreign body, right eye, initial encounter Qualifiers: Encounter type: initial encounter Qualified Code(s): S05.01XA - Injury of conjunctiva and corneal abrasion without foreign body, right eye, initial encounter Plan: Resolved. Pt completed Abx treatment course and denies any pain. Eye Exam WNL. (2) Cough: Code(s): R05.9 - Cough, unspecified Qualifiers: Cough type: acute Qualified Code(s): R05.1 - Acute cough Plan: Symptoms improving with OTC treaments Will continue to monitor. Coding Level of Care Code Est Pt Level 4 (20188) Diagnoses Abrasion of right cornea, initial encounter S05.01XA Encounter type: initial encounter Acute cough R05.1 Cough type: acute Time Spent (min) 20
[2024-07-04 08:39] VITALS: BP 114/70; PULSE 78; RESP 14; TEMP 36.8; O2SAT 95; BMI 30.9
== END 2024-07-04 09:04 | disposition home or self-care (01) ==
PROVIDERS: PCP Internal Medicine; Visit Provider Nurse Practitioner Family
DX: S05.01XA Injury of conjunctiva and corneal abrasion without foreign body, right eye, initial encounter (principal); R05.1 Acute cough

== ENCOUNTER 2024-07-11 15:12 | Outpatient (AMB) | payer OTHER, SELFPAY ==
--- OUTSIDE RECORDS SUMMARY | 2024-07-11 15:15 | XMS_ITS | Patient Health Record ---
Author Organization 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 EVERY DAY 30 MINUTES BEFORE MORNING MEAL for 30 Active Prilosec Active Albuterol Sulfate Ac tive Albuterol Sulfate HFA Active SOCIAL HISTORY Tobacco Use: Social History Observation Description Date Details (start date - stop date) Never Smoker NA - NA Sex Assigned At : Social History Observation Description Sex Assigned At Unknown Tobacco Use/Smoking Question Answer Notes Patient is a nonsmoker Alcohol Screen Question Answer Notes Did you have a drink containing alcohol in the p ast year? No Points 0 Interpretation Negative PROBLEMS Problem Type ICD Code Onset Dates Problem Status W/U Status Risk SNOMED Code Notes Problem Gastroesophageal reflux disease without esophagitis (K21.9) Active confirmed [id number] PLAN OF TREATMENT Future Test Test Name Order Date UPPER GI ENDOSCOPY 06/18/2020 Insurance Providers Payer Name Payer Address Payer Phone Subscriber Number Group Number Insured Name Patient Relationship to Insured Coverage Start Date Coverage End Date [employer]UE [employer] [facility] [address] [place] [address] [phone] [id number] 1 ASHVIN TAMAYO Self - patient is the insured MEDICAID OF [facility] [address] [place] [phone] [id number] ASHVIN TAMAYO Self - patient is the insured MEDICAL (GENERAL) HISTORY Medical History History ICD Code asthma Denies [place],DM,CVA,renal disease Surgical History Surgery Date(Month/Year) ears 1994 tonsils 1995 eye septic tear ducts 1997
--- NOTE | 2024-07-11 15:43 | A.OFFPC_ITS ---
Vital Signs 07/11/24 15:45 Height 5 ft 5 in Weight 184 lb BMI 30.6 BP 100/62 Blood Pressure Location Lt brachial Position Sitting Pulse 72 Pulse Source Pulse Oximeter Temp 97.7 F Temp Source Skin Pulse Oximetry (%) 97 Oxygen Delivery Method Room Air Intake Visit Reasons: ADHD Intake Note: Patient is here to follow up on ADHD. 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 This incident occurred in June 2023 after accidental contact with the patient?s canine, a puppy named Kofi. The patient reported redness, pain, and itchiness in the right eye, along with sensitivity to light. A fluorescein test confirmed the diagnosis, and polysermidrops were prescribed. The patient wears glasses and reports a recent new eye doctor appointment, but has not had an exam in a long time due to previous scheduling difficulties. The patient's medical history is significant for chronic conditions including GERD, ADHD, asthma, and generalized anxiety disorder. The patient reports that asthma symptoms may have worsened with a recent cold as it is flu season, but the patient received a flu shot this year and takes vitamin C and Echinacea pills regularly. Previous blood work was last completed in October 2022. The patient manages anxiety and ADHD with medications including fluxetine and quetiapine, and continues to see a counselor at [facility] with an appointment scheduled next week. [facility] Medical History Annual physical exam ADHD Asthma Allergic rhinitis Carpal tunnel syndrome Obesity (BMI 30-39.9) GERD (gastroesophageal reflux disease) Learning disability Surgical History History of eye surgery History of placement of ear tubes History of tonsillectomy Family History Father Medical history unknown Mother Breast cancer Hypertension Maternal Aunt Heart disease Maternal Grandmother Leukemia Paternal Grandmother Breast cancer Social History Housing: Apartment Alcohol intake: never Patient Tobacco Use Status: Never used Tobacco e-Cigarette/Vaping Use: Never Used Second Hand Smoke Exposure: No service: No Current occupational status: employed Current occupational exposures/hazards: No Cognitive needs: No Hearing needs: No Vision needs: No Questionnaire PHQ-9 Over the last 2 weeks, how often have you been bothered by any of the following problems? 1. Little interest or pleasure in doing things: not at all 2. Feeling down, depressed, or hopeless: not at all 3. Trouble falling or staying asleep, or sleeping too much: not at all 4. Feeling tired or having little energy: not at all 5. Poor appetite or overeating: not at all 6. Feeling bad about yourself - or that you are a failure or have let yourself or your family down: not at all 7. Trouble concentrating on things, such as reading the newspaper or watching television: not at all 8. Moving or speaking so slowly that other people could have noticed. Or the opposite - being so fidgety or restless that you have been moving around a lot more than usual: not at all 9. Thoughts that you would be better off or of hurting yourself in some way: not at all Total score: 0 Depression Screening Interpretation: Negative Depression Screening Done: Yes Source: Developed by Drs. Yuval Qiu, Leidy Mccall, Semaj Ruiz and colleagues, with an educational denise from [employer]. Thrive Questionnaire Date Thrive assessed: 07/11/24 I am a: Patient What is your living situation today?: I have a steady place to live Within the past 12 months, did the food you bought not last and you didn't have the money to get more?: Never true Within the past 12 months, did you worry whether your food would run out before you got money to buy more?: Never true Do you have trouble paying for medicines?: No Do you have trouble getting transportation to medical appointments?: No Do you have trouble paying your heating and electricity bill?: No Do you have trouble taking care of your child, family member or friend?: No Do you have trouble with day-to-day activities such as bathing, preparing meals, shopping, managing finances, etc.?: No Are you currently unemployed and looking for a job?: No Are you interested in more education?: No Please select the resources that you would like help with: None Currently or been in a relationship where the following occur: No concerns reported THRIVE Score: 0 AUDIT C Alcohol Use Questionnaire (AUDIT-C) 1. How often do you have a drink containing alcohol?: Never Total Score: 0 ANA MARIA-7 AMB Questionnaire ANA MARIA-7 Date ANA MARIA - 7 assessed: 07/11/24 Feeling nervous, anxious, or on edge: 0 = Not at all Not being able to stop or control worryin = Not at all Worrying too much about different things: 0 = Not at all Trouble relaxin = Not at all Being so restless that it is hard to sit still: 0 = Not at all Becoming easily annoyed or irritable: 0 = Not at all Feeling afraid as if something awful might happen: 0 = Not at all Total ANA MARIA-7 score (0-4 normal; 5-9 mild; 10-14 moderate; 15-21 severe): 0 Source: Developed by Drs. Yuval Qiu, Leidy Mccall, Semaj Ruiz and colleagues, with an educational denise from [employer]. Physical exam (Primary Care) Vital Signs: Last Vital Signs Temp 97.7 F 07/11/24 15:45 Pulse 72 07/11/24 15:45 BP 100/62 07/11/24 15:45 Pulse Ox 97 07/11/24 15:45 Oxygen Delivery Method Room Air 07/11/24 15:45 BMI result Body Mass Index 30.6 Tobacco/Smoking Status: Tobacco use Status Tobacco use date assessed 07/11/24 07/11/24 15:49 Patient Tobacco Use Status Never used Tobacco 07/11/24 15:49 e-Cigarette/Vaping Use Never Used 07/11/24 15:49 PHQ-9: PHQ-9 Score PHQ-9: Total score 0 07/11/24 16:30 Depression Screening Interpretation: Negative Thrive Assessment: Date of Thrive Assessment Date Thrive assessed 07/11/24 07/11/24 15:49 Currently or been in a relationship where the following occur: No concerns reported Const General: alert; No acute distress Eyes Conjunctivae: conjunctivae normal Resp Auscultation: clear to auscultation bilaterally Cardio Rate: regular rate Rhythm: regular rhythm GI Inspection: Yes normal to inspection Extrem General: Yes normal to inspection and No edema Coding Level of Care Code Est Pt Level 4 (05924) Diagnoses Attention deficit hyperactivity disorder (ADHD), predominantly inattentive type F90.0 Attention deficit-hyperactivity disorder type: predominantly inattentive Mild intermittent asthma without complication J45.20 Asthma complication type: uncomplicated Asthma persistence: intermittent Asthma severity: mild Obesity (BMI 30-39.9) E66.9 Gastroesophageal reflux disease with esophagitis without hemorrhage K21.00 Esophagitis bleeding: without hemorrhage Esophagitis presence: with esophagitis Generalized anxiety disorder F41.1 Abrasion of right cornea, initial encounter S05.01XA Encounter type: initial encounter Assessment & Plan Assessment & Plan (1) ADHD: Code(s): F90.9 - Attention-deficit hyperactivity disorder, unspecified type Category: Medical Qualifiers: Attention deficit-hyperactivity disorder type: predominantly inattentive Qualified Code(s): F90.0 - Attention-deficit hyperactivity disorder, predominantly inattentive type (2) Asthma: Comment: Inhaler prn Code(s): J45.909 - Unspecified asthma, uncomplicated Category: Medical Qualifiers: Asthma complication type: uncomplicated Asthma persistence: intermittent Asthma severity: mild Qualified Code(s): J45.20 - Mild int ermittent asthma, uncomplicated (3) Obesity (BMI 30-39.9): Code(s): E66.9 - Obesity, unspecified Category: Medical (4) GERD (gastroesophageal reflux disease): Code(s): K21.9 - Gastro-esophageal reflux disease without esophagitis Category: Medical Qualifiers: Esophagitis bleeding: without hemorrhage Esophagitis presence: with esophagitis Qualified Code(s): K21.00 - Gastro-esophageal reflux disease with esophagitis, without bleeding (5) Generalized anxiety disorder: Comment: Weekly [facility] Counseling Code(s): F41.1 - Generalized anxiety disorder Category: Medical Plan: continue with med (6) Corneal abrasion, right: Code(s): S05.01XA - Injury of conjunctiva and corneal abrasion without foreign body, right eye, initial encounter Category: Medical Qualifiers: Encounter type: initial encounter Qualified Code(s): S05.01XA - Injury of conjunctiva and corneal abrasion without foreign body, right eye, initial encounter Plan: resolved Plan - Right Eye Corneal Abrasion: Continue using prescribed polysermidrops. The patient has an appointment with a new eye doctor to ensure further evaluation and management. - Asthma: Advise continued vigilance during flu season as a preventative measure. Reinforce the usage of flu vaccination. Monitor for symptoms and consider reviewing asthma action plan if symptoms persist or worsen. - GERD: Continue current management strategies and monitor for any exacerbations. - Generalized Anxiety Disorder and ADHD: The patient should continue current medications, including fluxetine and quetiapine. Ongoing counseling is recommended, with follow-up appointments scheduled. - Tetanus Vaccination: The patient's tetanus shot is due; ensure administration upon availability. - Preventative Care: Reinforce hand hygiene and general precautions during gatherings to avoid infections like COVID-19 and RSV. Medications: Refilled omeprazole 40 mg PO DAILY 90 caps 2RF K21.00 - Gastro-esophageal reflux disease with esophagitis, without bleeding Discontinued polymyxin B sulf-trimethoprim 10,000 unit- 1 mg/mL while awake; no more than 6 doses in 24 hours Discontinued Reason: Patient Completed Course 1 drp ophthalmic (eye) Q3H 7 days 10 mL 0RF
[2024-07-11 15:45] VITALS: BP 100/62; PULSE 72; TEMP 36.5; O2SAT 97; BMI 30.6
== END 2024-07-11 16:38 | disposition home or self-care (01) ==
PROVIDERS: PCP Internal Medicine; Visit Provider Internal Medicine
DX: J45.20 Mild intermittent asthma, uncomplicated (principal); F90.0 Attention-deficit hyperactivity disorder, predominantly inattentive type; E66.9 Obesity, unspecified; Z68.30 Body mass index [BMI] 30.0-30.9, adult; K21.00 Gastro-esophageal reflux disease with esophagitis, without bleeding; F41.1 Generalized anxiety disorder; S05.01XA Injury of conjunctiva and corneal abrasion without foreign body, right eye, initial encounter

== ENCOUNTER → 2024-07-11 15:12 | Outpatient (BNVA) | payer OTHER, SELFPAY | PROVIDERS: PCP Internal Medicine; Visit Provider Internal Medicine | DX: F90.0 Attention-deficit hyperactivity disorder, predominantly inattentive type (principal); J45.20 Mild intermittent asthma, uncomplicated; E66.9 Obesity, unspecified; K21.00 Gastro-esophageal reflux disease with esophagitis, without bleeding; F41.1 Generalized anxiety disorder; S05.01XD Injury of conjunctiva and corneal abrasion without foreign body, right eye, subsequent encounter | CPT/HCPCS: 99212 ==

== ENCOUNTER 2024-10-13 16:02 | Outpatient (AMB) | payer OTHER, SELFPAY ==
--- OUTSIDE RECORDS SUMMARY | 2024-10-13 16:05 | XMS_ITS | Patient Health Record ---
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 EVERY DAY 30 MINUTES BEFORE MORNING MEAL for 30 Active Prilosec Active Albuterol Sulfate Ac tive Albuterol Sulfate HFA Active Social History Tobacco Use: Social History Observation Description Date Details (start date - stop date) Never Smoker NA - NA Tobacco Use/Smoking Question Answer Notes Patient is a nonsmoker Alcohol Screen Question Answer Notes Did you have a drink containing alcohol in the p ast year? No Points 0 Interpretation Negative Problems Problem Type SNOMED Code ICD Code Onset Dates Problem Status W/U Status Risk Notes Problem [id number] Gastroesophageal reflux disease without esophagitis (K21.9) Active confirmed Plan Of Treatment Future Test Test Name Order Date UPPER GI ENDOSCOPY 06/18/2020 Insurance Providers Payer Name Payer Address Payer Phone Subscriber Number Group Number Insured Name Patient Relationship to Insured Coverage Start Date Coverage End Date [facility]UE [facility] [address] [place] [address] [phone] [id number] 1 ASHVIN TAMAYO Self - patient is the insured MEDICAID OF [facility] [address] [place] [phone] [id number] ASHVIN TAMAYO Self - patient is the insured Medical (General) History Medical History History ICD Code asthma Denies [place],DM,CVA,renal disease Surgical History Surgery Date(Month/Year) ears 1994 tonsils 1996 eye septic tear ducts 1997
--- NOTE | 2024-10-13 16:09 | A.OFFPC_ITS ---
Vital Signs 10/13/24 16:10 Height 5 ft 5 in Weight 182 lb 2 oz BMI 30.3 BP 108/66 Blood Pressure Location Lt brachial Position Sitting Pulse 100 Pulse Source Pulse Oximeter Temp 97.3 F Temp Source Temporal Artery Scan Pulse Oximetry (%) 98 Oxygen Delivery Method Room Air Intake Visit Reasons: ADHD, ANA MARIA Allergies seafood Allergy (Verified 07/11/24 15:44) Swelling shellfish derived Allergy (Verified 07/11/24 15:44) Swelling Tobacco use date assessed: 07/11/24 Dental Screening Dental Screen Date: 07/11/24 [facility] Medical History Annual physical exam ADHD Asthma Allergic rhinitis Carpal tunnel syndrome Obesity (BMI 30-39.9) GERD (gastroesophageal reflux disease) Learning disability Surgical History History of eye surgery History of placement of ear tubes History of tonsillectomy Family History Father Medical history unknown Mother Breast cancer Hypertension Maternal Aunt Heart disease Maternal Grandmother Leukemia Paternal Grandmother Breast cancer Social History Housing: Apartment Alcohol intake: never Patient Tobacco Use Status: Never used Tobacco e-Cigarette/Vaping Use: Never Used Second Hand Smoke Exposure: No service: No Current occupational status: employed Current occupational exposures/hazards: No Cognitive needs: No Hearing needs: No Vision needs: No Questionnaire PHQ-9 Over the last 2 weeks, how often have you been bothered by any of the following problems? 1. Little interest or pleasure in doing things: several days 2. Feeling down, depressed, or hopeless: several days 3. Trouble falling or staying asleep, or sleeping too much: not at all 4. Feeling tired or having little energy: not at all 5. Poor appetite or overeating: not at all 6. Feeling bad about yourself - or that you are a failure or have let yourself or your family down: not at all 7. Trouble concentrating on things, such as reading the newspaper or watching television: not at all 8. Moving or speaking so slowly that other people could have noticed. Or the opp osite - being so fidgety or restless that you have been moving around a lot more than usual: not at all 9. Thoughts that you would be better off or of hurting yourself in some way: not at all Total score: 2 14529 - PHQ-9 Billing: Yes Source: Developed by Drs. Yuval Qiu, Leidy Mccall, Semaj Ruiz and colleagues, with an educational denise from [employer]. Thrive Questionnaire Date Thrive assessed: 10/13/24 I am a: Patient What is your living situation today?: I have a steady place to live Within the past 12 months, did the food you bought not last and you didn't have the money to get more?: Never true Within the past 12 months, did you worry whether your food would run out before you got money to buy more?: Never true Do you have trouble paying for medicines?: I choose not to answer this question Do you have trouble getting transportation to medical appointments?: No Do you have trouble paying your heating and electricity bill?: I choose not to answer this question Do you have trouble taking care of your child, family member or friend?: I choose not to answer this question Do you have trouble with day-to-day activities such as bathing, preparing meals, shopping, managing finances, etc.?: I choose not to answer this question Are you currently unemployed and looking for a job?: I choose not to answer this question Are you interested in more education?: I choose not to answer this question Please select the resources that you would like help with: None Currently or been in a relationship where the following occur: I choose not to answer THRIVE Score: 0 AUDIT C Alcohol Use Questionnaire (AUDIT-C) 1. How often do you have a drink containing alcohol?: Never 3. How often do you have six or more drinks on one occasion?: Never Total Score: 0 ANA MARIA-7 AMB Questionnaire ANA MARIA-7 Date ANA MARIA - 7 assessed: 10/13/24 Feeling nervous, anxious, or on edge: 1 = Several days Not being able to stop or control worryin = Several days Worrying too much about different things: 1 = Several days Trouble relaxin = Several days Being so restless that it is hard to sit still: 1 = Several days Becoming easily annoyed or irritable: 0 = Not at all Feeling afraid as if something awful might happen: 1 = Several days Total ANA MARIA-7 score (0-4 normal; 5-9 mild; 10-14 moderate; 15-21 severe): 6 Source: Developed by Drs. Yuval Qiu, Leidy Mccall, Semaj Ruiz and colleagues, with an educational denise from [employer]. ANA MARIA-7 Assessment Billing ANA MARIA-7 Assessment Tool: ANA MARIA-7 Assessment 49914 Physical exam (Primary Care) Vital Signs: Last Vital Signs Temp 97.3 F 10/13/24 16:10 Pulse 100 10/13/24 16:10 BP 108/66 10/13/24 16:10 Pulse Ox 98 10/13/24 16:10 Oxygen Delivery Method Room Air 10/13/24 16:10 BMI result Body Mass Index 30.3 Tobacco/Smoking Status: Tobacco use Status Tobacco use date assessed 07/11/24 10/13/24 16:10 Patient Tobacco Use Status Never used Tobacco 10/13/24 16:10 e-Cigarette/Vaping Use Never Used 10/13/24 16:10 PHQ-9: PHQ-9 Score PHQ-9: Total score 2 10/13/24 16:37 Thrive Assessment: Date of Thrive Assessment Date Thrive assessed 10/13/24 10/13/24 16:14 Currently or been in a relationship where the following occur: I choose not to answer Const General: alert; No acute distress Eyes Conjunctivae: conjunctivae normal Resp Auscultation: clear to auscultation bilaterally Cardio Rate: regular rate Rhythm: regular rhythm GI Inspection: Yes normal to inspection Extrem General: Yes normal to inspection and No edema Immunizations Boostrix Tdap 2.5 Lf unit-8 mcg-5 Lf/0.5 mL intramuscular syringe Performing Provider: Davonte Manzano MD [facility] Administered by: ALEXANDER Bray on 10/13/24 16:37 Dose Route Admin Location Dispensed Lot Number Expiration Date [facility] [employer] 0.5 mL IM Left Deltoid 0.5 mL [id number] 01/27/27 33559-145-66 [employer] VIS Given Date VIS Provided VIS Publication Date 10/13/24 Single Vaccine 21 Eligibility Eligibility Date Funding Source Not [facility] Eligible 10/13/24 Private Coding Level of Care Code Est Pt Level 4 (89821) Diagnoses Gastroesophageal reflux disease with esophagitis without hemorrhage K21.00 Esophagitis bleeding: without hemorrhage Esophagitis presence: with esophagitis Obesity (BMI 30-39.9) E66.9 Mild intermittent asthma without complication J45.20 Asthma complication type: uncomplicated Asthma persistence: intermittent Asthma severity: mild Attention deficit hyperactivity disorder (ADHD), predominantly inattentive type F90.0 Attention deficit-hyperactivity disorder type: predominantly inattentive Generalized anxiety disorder F41.1 Hearing difficulty of both ears H91.93 Impacted cerumen of right ear H61.21 Additional Codes ANA MARIA-7 Assessment Billing - ANA MARIA-7 Assessment Tool: ANA MARIA-7 Assessment 62236 ([id number]) PHQ-9 - 52841 - PHQ-9 Billing: Yes ([id number]) Assessment & Plan Assessment & Plan (1) GERD (gastroesophageal reflux disease): Code(s): K21.9 - Gastro-esophageal reflux disease without esophagitis Category: Medical Qualifiers: Esophagitis bleeding: without hemorrhage Esophagitis presence: with e sophagitis Qualified Code(s): K21.00 - Gastro-esophageal reflux disease with esophagitis, without bleeding Plan: Avoid the foods that causes that usually spicy foods, tomato products, juices, coffee, soda and foods that your sensitive to. After eating do not lie down, allow 3-4 hours before in lie down. And keep the head of bed above 30 degrees to avoid the acid from going up. (2) Obesity (BMI 30-39.9): Code(s): E66.9 - Obesity, unspecified Category: Medical Plan: Diet and exercise (3) Asthma: Comment: Inhaler prn Code(s): J45.909 - Unspecified asthma, uncomplicated Category: Medical Qualifiers: Asthma complication type: uncomplicated Asthma persistence: intermittent Asthma severity: mild Qualified Code(s): J45.20 - Mild intermittent asthma, uncomplicated Plan: Patient on albuterol inhaler to use as needed (4) ADHD: Code(s): F90.9 - Attention-deficit hyperactivity disorder, unspecified type Category: Medical Qualifiers: Attention deficit-hyperactivity disorder type: predominantly inattentive Qualified Code(s): F90.0 - Attention-deficit hyperactivity disorder, predominantly inattentive type Plan: Continue with present medication (5) Generalized anxiety disorder: Comment: Weekly [facility] Counseling Code(s): F41.1 - Generalized anxiety disorder Category: Medical Plan: On quetiapine fluoxetine patient is advised to get blood work (6) Hearing difficulty of both ears: Code(s): H91.93 - Unspecified hearing loss, bilateral Category: Medical Plan: Patient is being referred to ear nose and throat (7) Impacted cerumen of right ear: Code(s): H61.21 - Impacted cerumen, right ear Category: Medical Plan: Patient will be referred to ear nose and throat Plan History of Present Illness The patient is a 33-year-old male presenting with hearing loss. He describes this issue as affecting both ears, with a notable worsening in hearing capability on one side. 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 The patient identified ear wax presence but denied any associated ear pain. Health Maintenance - Blood work requested and advised as fasting; last complete blood work was conducted in 2022. - Encouragement to adhere to a reflux management plan through diet and exercise. - Reviewed current vaccination status; advised to receive Tdap vaccination. - Discussed weight management strategies, emphasizing diet and exercise. Social History - The patient reports traveling to [place] and experiencing exacerbation of asthma symptoms during the allergy season. Review of Systems - Ears: Reports difficulty hearing and presence of ear wax. - Respiratory: Denies significant asthma exacerbation or need for inhaler refill. - General: Denies any recent changes in visual acuity. Physical Exam - Ears- Presence of some ear wax; no significant occlusion. No acute pain on examination. Results Plan I reviewed the patient's ongoing management of obesity, asthma, GERD, ADHD, and anxiety disorder. The patient will continue his current medications and use the albuterol inhaler as necessary. Given his obesity, adherence to diet and exerci se was emphasized. For his hearing issue, I arranged a referral to another ENT specialist. The patient's blood work was discussed, including the requirement for fasting. I encouraged compliance with the reflux management plan and current medications. The patient was advised to receive a Tdap vaccination, and I will ensure referral arrangements for the ENT visit. The exacerbation of asthma symptoms during allergy season was acknowledged but requires no change in management at this time. Patient was informed and verbally consented to the use of an ambient scribe for clinic note documentation during this visit. Discussion Notes I discussed with the patient the management of his hearing loss and the importance of undergoing fasting blood work as part of ongoing health maintenance. We conversed about adhering to diet and exercise to address obesity and discussed the stability of asthma with current treatments. I advised receiving a Tdap vaccination. Further referrals for ENT evaluation were agreed upon, given the patient's desire for alternative specialist consultation. Throughout the discussion, I ensured the patient understood the rationale behind these recommendations and the importance of compliance with prescribed medications and lifestyle adjustments. Patient Instructions - Get fasting blood work done as instructed. - Continue current medications as prescribed. - Follow the diet and exercise plan for weight and reflux management. - Receive a Tdap vaccination during this visit. - Follow up with ENT for hearing issues as arranged. - Continue using the albuterol inhaler as needed for asthma. - Return for follow-up as discussed. Orders: Orders Thyroid Stimulating Hormone Today K21.00 - Gastro-esophageal reflux disease with esophagitis, without bleeding TDaP Immunization Today Z23 - Encounter for immunization Complete Blood Count Auto Diff Today K21.00 - Gastro-esophageal reflux disease with esophagitis, without bleeding Comprehensive Met. Panel Today K21.00 - Gastro-esophageal reflux disease with esophagitis, without bleeding Free T4 (Free Thyroxine) Today K21.00 - Gastro-esophageal reflux disease with esophagitis, without bleeding Lipid Panel Today E78.00 - Pure hypercholesterolemia, unspecified, K21.00 - Gastro-esophageal reflux disease with esophagitis, without bleeding Vitamin B12 and Folate Today K21.00 - Gastro-esophageal reflux disease with esophagitis, without bleeding Referrals Ear/Nose/Throat Referral H91.93 - Unspecified hearing loss, bilateral
[2024-10-13 16:10] VITALS: BP 108/66; PULSE 100; TEMP 36.3; O2SAT 98; BMI 30.3
== END 2024-10-13 16:39 | disposition home or self-care (01) ==
LOC: HO.HMCH 16:02
PROVIDERS: PCP Internal Medicine; Visit Provider Internal Medicine
DX: K21.00 Gastro-esophageal reflux disease with esophagitis, without bleeding (principal); E66.9 Obesity, unspecified; Z68.30 Body mass index [BMI] 30.0-30.9, adult; J45.20 Mild intermittent asthma, uncomplicated; F90.0 Attention-deficit hyperactivity disorder, predominantly inattentive type; F41.1 Generalized anxiety disorder; H91.93 Unspecified hearing loss, bilateral; H61.21 Impacted cerumen, right ear; Z23 Encounter for immunization

== ENCOUNTER → 2024-10-13 16:02 | Outpatient (BNVA) | payer OTHER, SELFPAY | PROVIDERS: PCP Internal Medicine; Visit Provider Internal Medicine | DX: F90.0 Attention-deficit hyperactivity disorder, predominantly inattentive type (principal); Z23 Encounter for immunization; F41.1 Generalized anxiety disorder; K21.00 Gastro-esophageal reflux disease with esophagitis, without bleeding; E66.9 Obesity, unspecified; Z68.30 Body mass index [BMI] 30.0-30.9, adult; J45.20 Mild intermittent asthma, uncomplicated; H91.93 Unspecified hearing loss, bilateral; H61.21 Impacted cerumen, right ear; Z79.899 Other long term (current) drug therapy | CPT/HCPCS: 90471; 90715; 96127; 99212 ==

== ENCOUNTER 2024-10-22 08:17 | Outpatient (AMB) | payer OTHER, SELFPAY ==
--- NOTE | 2024-10-22 08:48 | MHC.OFFWIV ---
Intake Vital Signs 10/22/24 08:52 Weight 192 lb BP 112/78 Blood Pressure Location Lt brachial Position Sitting Pulse 75 Pulse Source Pulse Oximeter Temp 98.3 F Temp Source Oral Pulse Oximetry (%) 96 Oxygen Delivery Method Room Air Intake Visit Reasons: EP cough, ? bronchitis Intake Note: Patient here for cough that has been present for about a week. Patient Tobacco Use Status: Never used Tobacco Allergies seafood Allergy (Verified 10/22/24 08:54) Swelling shellfish derived Allergy (Verified 10/22/24 08:54) Swelling Do you need a note to return to daycare/school/sports/work: No HPI EP cough, ? bronchitis HPI Details This is a 33 year old male patient who presents to the [place] clinic with persistent cough over the last week or so. He states that he returned from a trip to [place] about 2 weeks ago, and since then, his asthma was significantly exacerbated, and dry cough started and has worsened over the last week or so. He has been using Ventolin inhaler and nebulizer at home with minimal relief. Denies any other URI symptoms or fevers/chills. [facility] Medical History Annual physical exam ADHD Asthma Allergic rhinitis Carpal tunnel syndrome Obesity (BMI 30-39.9) GERD (gastroesophageal reflux disease) Learning disability Surgical History History of eye surgery History of placement of ear tubes History of tonsillectomy Family History Father Medical history unknown Mother Breast cancer Hypertension Maternal Aunt Heart disease Maternal Grandmother Leukemia Paternal Grandmother Breast cancer Social History Housing: Apartment Alcohol intake: never Patient Tobacco Use Status: Never used Tobacco e-Cigarette/Vaping Use: Never Used Second Hand Smoke Exposure: No service: No Current occupational status: employed Current occupational exposures/hazards: No Cognitive needs: No Hearing needs: No Vision needs: No Review of Systems Const All systems reviewed & are unremarkable except as noted in HPI and below Physical Exam Vital Signs: Last Vital Signs Temp 98.3 F 10/22/24 08:52 Pulse 75 10/22/24 08:52 BP 112/78 10/22/24 08:52 Pulse Ox 96 10/22/24 08:52 Oxygen Delivery Method Room Air 10/22/24 08:52 Const General: cooperative and no acute distress Limitations: no limitations HEENT Head: Yes normal to inspection Ears: hearing grossly normal bilaterally General nose exam: Normal external nose present Face and sinus: Yes normal facial exam Throat: Yes posterior oropharynx normal Neck Neck: Yes no lymphadenopathy Resp Effort & Inspection: normal respiratory effort and Actively coughing (dry) Quality: actively coughing Auscultation: wheezes (mild upper b/l on expiration, otherwise clear) Cardio Rate: regular rate Rhythm: regular rhythm Skin General skin exam: no rashes or lesions noted Extrem General: Yes capillary refill normal and Yes no clubbing, cyanosis or edema Psych Appearance: grossly normal Mental Status: mental status grossly normal Speech and movement: Normal speech and movement present Assessment & Plan Assessment & Plan (1) Acute bronchitis: Code(s): J20.9 - Acute bronchitis, unspecified Qualifiers: Bronchitis organism: unspecified organism Qualified Code(s): J20.9 - Acute bronchitis, unspecified Plan: Presentation consistent with acute asthmatic bronchitis. He has done well on Prednisone for asthma exacerbations previously. We will start patient on short course of prednisone, as well as benzonatate. We reviewed indications, use, possible side effects of these medications. He can continue to utilize inhaler and nebulizer as needed at home. If he does not improve with treatment, or symptoms worsen/new symptoms develop such as fever/chills or shortness of breath, he can return to the clinic or the emergency department for further evaluation. Patient verbalizes understanding and agrees to plan. Medications: New prednisone 40 mg (2 x 20 mg) PO DAILY 5 days 10 tabs 0RF J20.9 - Acute bronchitis, unspecified benzonatate 100 mg PO BID 7 days PRN 14 caps 0RF cough R05.9 - Cough, unspecified Coding Level of Care Code Est Pt Level 4 (84315) Diagnoses Acute bronchitis, unspecified organism J20.9 Bronchitis organism: unspecified organism
[2024-10-22 08:52] VITALS: BP 112/78; PULSE 75; TEMP 36.8; O2SAT 96
--- OUTSIDE RECORDS SUMMARY | 2024-10-22 09:33 | XMS_ITS | Patient Health Record ---
Author Organization [facility] Address [address] [place] [address] Care Team Providers Care Roll Wrapper Name Role Phone Davonte Manzano MD Primary [...] Omeprazole 40 MG TAKE 1 CAPSULE BY [facility] EVERY DAY 30 MINUTES BEFORE MORNING MEAL [...] Problem Status W/U Status Risk Notes Problem [id number] Gastroesophageal reflux disease without esophagitis (K21.9) Active confirmed Plan Of Treatment Future Test Test Name Order Date UPPER GI ENDOSCOPY 06/18/2020 Insurance Providers Payer Name Payer Address Payer Phone Subscriber Number Group Number Insured Name Patient Relationship to Insured Coverage Start Date Coverage End Date [employer] [facility] [address] [place] [address] [phone] [id number] ASHVIN TAMAYO Self - patient is the insured MEDICAID OF [facility] [address] [place] [phone] [id number] ASHVIN TAMAYO Self - patient is the insured Medical (General) History Medical History History ICD Code asthma Denies MA,DM,CVA,renal disease Surgical History Surgery Date(Month/Year) ears 1994 tonsils 1996 eye septic tear ducts 1997
== END 2024-10-22 09:42 | disposition home or self-care (01) ==
PROVIDERS: PCP Internal Medicine; Visit Provider Nurse Practitioner Family
DX: J20.9 Acute bronchitis, unspecified (principal)

== ENCOUNTER → 2024-10-22 08:17 | Outpatient (BNVA) | payer OTHER, SELFPAY | PROVIDERS: PCP Internal Medicine | DX: J20.9 Acute bronchitis, unspecified (principal) | CPT/HCPCS: 99212 ==

== ENCOUNTER 2025-04-23 09:22 | Outpatient (AMB) | payer OTHER, SELFPAY ==
[2025-04-23 09:27] VITALS: BP 118/70; PULSE 68; O2SAT 98; BMI 30.9
--- NOTE | 2025-04-23 09:27 | A.OFFPC_ITS ---
Vital Signs 04/23/25 09:27 Height 5 ft 5 in Weight 186 lb BMI 30.9 BP 118/70 Blood Pressure Location Lt brachial Position Sitting Pulse 68 Pulse Source Pulse Oximeter Pulse Oximetry (%) 98 Oxygen Delivery Method Room Air Intake Visit Reasons: ADHD RE Allergies seafood Allergy (Verified 04/23/25 09:28) Swelling shellfish derived Allergy (Verified 04/23/25 09:28) Swelling Medication List - Last Reconciled 04/23/25 by Davonte Manzano MD albuterol sulfate 2.5 mg (3 mL) inhalation QID PRN albuterol sulfate 90 mcg/actuation 1 puff inhalation QID PRN fluoxetine 40 mg PO QAM methylphenidate HCl ER (Concerta) 54 mg PO DAILY omeprazole 40 mg PO DAILY quetiapine 100 mg PO BEDTIME Tobacco use date assessed: 07/11/24 Dental Screening Dental Screen Date: 07/11/24 HPI HPI Comments History of Present Illness Details History of Present Illness The patient is a 34 year old individual presenting for a follow-up visit for management of chronic conditions. The patient has a history of recurrent ADHD, asthma, and generalized anxiety disorder. The last visit was in October of the previous year. The patient reports asthma is well-controlled with infrequent use of an albuterol inhaler, noting significant improvement since removing carpet from the home. The patient was seen at an urgent care center in October for a cough and was treated for bronchitis with prednisone and Tessalon Perles. The patient's history includes an esophagogastroduodenoscopy (EGD) in 2020. Medications include methylphenidate ER (Concerta), quetiapine, fluoxetine, and omeprazole for reflux. The last blood work was performed in October of the previous year and was normal. The patient has been advised to complete follow-up fasting blood work but has not yet done so. Health Maintenance An order for fasting blood work was placed to assess kidney and liver function, which the patient will complete this Sunday. An influenza vaccine was administered during the visit. The patient was counseled on healthy eating, staying active, and weight loss. Follow-up will occur after the blood work results are received. Social History - Housing: The patient reports improved asthma control after removing carpet f rom the home. - Exercise: The patient was advised to r emain active. - Nutrition: The patient was advised to eat healthy for weight management. Results - Labs: Last blood work from October of the previous year was normal. PENDING SALE TO [facility] Medical History Annual physical exam ADHD Asthma Allergic rhinitis Carpal tunnel syndrome Obesity (BMI 30-39.9) GERD (gastroesophageal reflux disease) Learning disability Surgical History History of eye surgery History of placement of ear tubes History of tonsillectomy Family History Father Medical history unknown Mother Breast cancer Hypertension Maternal Aunt Heart disease Maternal Grandmother Leukemia Paternal Grandmother Breast cancer Social History Housing: Apartment Alcohol intake: never Patient Tobacco Use Status: Never used Tobacco Tobacco use type: Cigarette e-Cigarette/Vaping Use: Never Used Second Hand Smoke Exposure: No service: No Current occupational status: employed Current occupational exposures/hazards: No Cognitive needs: No Hearing needs: No Vision needs: No Questionnaire Thrive Questionnaire Date Thrive assessed: 10/13/24 I am a: Patient What is your living situation today?: I have a steady place to live Within the past 12 months, did the food you bought not last and you didn't have the money to get more?: Never true Within the past 12 months, did you worry whether your food would run out before you got money to buy more?: Never true Do you have trouble paying for medicines?: I choose not to answer this question Do you have trouble getting transportation to medical appointments?: No Do you have trouble paying your heating and electricity bill?: I choose not to answer this question Do you have trouble taking care of your child, family member or friend?: I choose not to answer this question Do you have trouble with day-to-day activities such as bathing, preparing meals, shopping, managing finances, etc.?: I choose not to answer this question Are you currently unemployed and looking for a job?: I choose not to answer this question Are you interested in more education?: I choose not to answer this question Please select the resources that you would like help with: None Currently or been in a relationship where the following occur: I choose not to answer THRIVE Score: 0 ANA MARIA-7 AMB Questionnaire ANA MARIA-7 Date ANA MARIA - 7 assessed: 10/13/24 Source: Developed by Drs. Yuval Qiu, Leidy Mccall, Semaj Ruiz and colleagues, with an educational denise from [employer]. Review of Systems Narrative Review of Systems - Respiratory: Reports that asthma is well-controlled. - Denies recent use of rescue inhaler. - Gastrointestinal: Denies constipation and reports good bowel movements. - Genitourinary: Denies any problems with urination. - Constitutional: Denies swelling. Physical exam (Primary Care) Vital Signs: Last Vital Signs Pulse 68 04/23/25 09:27 BP 118/70 04/23/25 09:27 Pulse Ox 98 04/23/25 09:27 Oxygen Delivery Method Room Air 04/23/25 09:27 BMI result Body Mass Index 30.9 Tobacco/Smoking Status: Tobacco use Status Tobacco use date assessed 07/11/24 04/23/25 09:31 Patient Tobacco Use Status Never used Tobacco 04/23/25 09:31 Tobacco use type Cigarette 04/23/25 09:31 e-Cigarette/Vaping Use Never Used 04/23/25 09:31 Thrive Assessment: Date of Thrive Assessment Date Thrive assessed 10/13/24 04/23/25 09:31 Currently or been in a relationship where the following occur: I choose not to answer Narrative Physical Exam Const General: alert; No acute distress Eyes Conjunctivae: conjunctivae normal Resp Auscultation: clear to auscultation bilaterally Cardio Rate: regular rate Rhythm: regular rhythm GI Inspection: Yes normal to inspection Extrem General: Yes normal to inspection and No edema Office Procedures Flu Questionnaire Does the patient have a severe egg allergy?: No Does the patient have severe life threatening allergies?: No Does the patient have a fever or illness today?: No Has the patient ever had Guillain-[place] Syndrome?: No Has the patient ever had any past reaction to a flu shot?: No Immunizations Fluarix [id number] (PF) 45 mcg (15 mcg x 3)/0.5 mL IM syringe Performing Provider: Davonte Manzano MD [facility] Administered by: Griselda Carrizales LPN on 04/23/25 09:43 Dose Route Admin Location Dispensed Lot Number Expiration Date [facility] Machine Heddle Cleaner 0.5 mL IM Left Deltoid 0.5 mL [id number] 12/01/25 15029-301-37 Content360 VIS Given Date VIS Provided VIS Publication Date 04/23/25 Single Vaccine 24 Eligibility Eligibility Date Funding Source Not [facility] Eligible 04/23/25 Private Coding Level of Care Code Est Pt Level 4 (39887) Complex EM visit Add On G2211 Diagnoses Obesity (BMI 30-39.9) E66.9 Gastroesophageal reflux disease with esophagitis without hemorrhage K21.00 Esophagitis bleeding: without hemorrhage Esophagitis presence: with esophagitis Mild intermittent asthma without complication J45.20 Asthma complication type: uncomplicated Asthma persistence: intermittent Asthma severity: mild Generalized anxiety disorder F41.1 Attention deficit hyperactivity disorder (ADHD), predominantly inattentive type F90.0 Attention deficit-hyperactivity disorder type: predominantly inattentive Assessment & Plan Assessment & Plan (1) Obesity (BMI 30-39.9): Code(s): E66.9 - Obesity, unspecified Category: Medical Plan: Diet and exercise (2) GERD (gastroesophageal reflux disease): Code(s): K21.9 - Gastro-esophageal reflux disease without esophagitis Category: Medical Qualifiers: Esophagitis bleeding: without hemorrhage Esophagitis presence: with esophagitis Qualified Code(s): K21.00 - Gastro-esophageal reflux disease with esophagitis, without bleeding Plan: Avoid the foods that causes that usually spicy foods, tomato products, juices, coffee, soda and foods that your sensitive to. After eating do not lie down, allow 3-4 hours before in lie down. And keep the head of bed above 30 degrees to avoid the acid from going up. Patient is strongly advised to repeat blood work (3) Asthma: Comment: Inhaler prn Code(s): J45.909 - Unspecified asthma, uncomplicated Category: Medical Qualifiers: Asthma complication type: uncomplicated Asthma persistence: intermittent Asthma severity: mild Qualified Code(s): J45.20 - Mild intermittent asthma, uncomplicated Plan: Patient on albuterol inhaler as needed (4) Generalized anxiety disorder: Comment: Weekly [facility] Counseling Code(s): F41.1 - Generalized anxiety disorder Category: Medical Plan: Continue with quetiapine and fluoxetine (5) ADHD: Code(s): F90.9 - Attention-deficit hyperactivity disorder, unspecified type Category: Medical Qualifiers: Attention deficit-hyperactivity disorder type: predominantly inattentive Qualified Code(s): F90.0 - Attention-deficit hyperactivity disorder, predominantly inattentive type Plan: Patient on methylphenidate ER/Concerta Plan Plan Patient was informed and verbally consented to the use of an ambient scribe for clinic note documentation during this visit. 1. Attention-Deficit/Hyperactivity Disorder The patient's ADHD is stable on the current regimen. The plan is to continue methylphenidate ER (Concerta). 2. Generalized Anxiety Disorder The patient's anxiety is managed with current medications. The plan is to continue quetiapine and fluoxetine, and a refill for fluoxetine will be provided as requested. 3. Asthma The patient's asthma is well-controlled, with symptoms improving after environmental modification (carpet removal). The plan is to continue the albuterol inhaler for as-needed use. 4. Gastroesophageal Reflux Disease The patient takes omeprazole for reflux. The patient was counseled on potential long-term side effects including malabsorption of vitamin B12 and magnesium, but advised to continue use as needed for heartburn. Discussion Notes I discussed with the patient the importance of completing fasting blood work to monitor kidney and liver function. The patient agreed to have the labs drawn this Sunday. We reviewed the patient's current medications, and I counseled on the potential side effects of long-term omeprazole use, such as reduced absorption of B12 and magnesium, while advising its continued use for significant heartburn. A fluoxetine refill was requested and will be provided. I recommended and administered an influenza vaccine during the visit. I also e ncouraged the patient to eat a healthy diet, stay active, and pursue weight loss for overall health. I will await the blood work results for further review. Patient Instructions - Please go for your fasting blood work this Sunday to check on your kidney and liver health. - Continue taking your current medications as prescribed, including Concerta, quetiapine, and fluoxetine. - A refill for your fluoxetine will be sent to your pharmacy. - Use your albuterol inhaler if you have any asthma symptoms. - You may continue taking omeprazole for heartburn as needed. - You received your flu shot today. - Focus on eating a healthy diet and staying physically active to help manage your weight. - Remember to drink plenty of water. Orders: Orders Magnesium Today K21.00 - Gastro-esophageal reflux disease with esophagitis, without bleeding Influenza [id number] Immunization Today Z23 - Encounter for immunization
--- OUTSIDE RECORDS SUMMARY | 2025-04-23 12:13 | XMS_ITS | Patient Health Record ---
Author Organization [facility] Address [address] [place] [address] Care Team Providers Care Physical Director Name Role Phone Davonte Manzano MD Primary Care Provider Ramin Dillon Jr Unavailable [phone] Allergies Allergen (clinical drug ingredient) Drug/Non Drug Allergy documented on EMR Reaction Allergy Type Onset Date Status Information temporarily unavailable shell fish,seafood (uncoded) Unknown Allergy Active Reason For Referral No Information Medications Medication SIG (Take, Route, Frequency, Duration) Notes Start Date End Date Status Concerta 54 MG Tablet Extended Release 1 tablet in the morning Orally Once a day Active Omeprazole 40 MG Capsule Delayed Release TAKE 1 CAPSULE BY MOUTH EVERY DAY 30 MINUTES BEFORE MORNING MEAL; Duration: 30 Active Prilosec Active Albuterol Sulfate Ac tive Albuterol Sulfate HFA Active Social History Tobacco Use: Social History Observation Description Date Details (start date - stop date) Never Smoker NA - NA Social History Drugs/Alcohol: Social Info Question Answer Notes Alcohol Screen Did you have a drink containing alcohol in the past year? No Points 0 Interpretation Negative Tobacco Use: Social Info Question Answer Notes Tobacco Use/Smoking Patient is a nonsmoker Additional Details Category Social Info Options Details Miscellaneous: Marital status: single Occupation: [employer] employee Problems Problem Type SNOMED Code ICD Code Onset Dates Problem Status W/U Status Risk Notes Problem Gastroesophageal reflux disease without esophagitis (671217349) Gastroesophageal reflux disease without esophagitis (K21.9) Active confirmed Plan Of Treatment Future Test Test Name Order Date UPPER GI ENDOSCOPY 06/18/2020 Insurance Providers Payer Name Payer Address Payer Phone Subscriber Number Group Number Insured Name Patient Relationship to Insured Coverage Start Date Coverage End Date [facility] [address] [place] [address] [phone] [id number] ASHVIN TAMAYO Self - patient is the insured MEDICAID OF [facility] [address] [place] [address] [phone] [id number] ASHVIN TAMAYO Self - patient is the insured Medical (General) History Medical History History ICD Code asthma Denies NM,DM,CVA,renal disease Surgical History Surgery Date(Month/Year) ears 1994 tonsils 1995 eye septic tear ducts 1997
--- OUTSIDE RECORDS SUMMARY | 2025-04-23 12:13 | XMS_ITS | Data Portability ---
Author Organization [place] [facility] Address [address] [address] Care Team Providers [place] Program Technician Name Role Phone MALCOMHERMES Primary Care Provider [phone] Assessment Encounter Date Assessment Date Assessment LastModified by Organization Details LastModified Time 12/19/2024 12/19/2024 1. Hearing Loss, Left Ear The patient experiences mild hearing loss in the left ear, confirmed via recent audiometry. No current indication for hearing aids. Advised hearing protection in noisy environments. Follow-up auditory assessment in two years is recommended. 2. History of Tympanostomy Tube Placement Previous tympanostomy tube placement with noted re-healing of the tympanic membrane, and no current interventions needed. [email or web address] Not available 12/19/2024 15:08:41 Plan of Treatment Reminders Order Date Submit Date Provider Last Modified By Organization Details Last Modified Time Details Appointments None record ed. Lab None record ed. Referral None record ed. Procedures None record ed. Surgeries None record ed. Imaging None record ed. Medication Orders None record ed. Patient TargetsNo targets recorded. Patient Instructions Encounter Date Encounter Id Patient Instructions Last Modified By Organization Details Last Modified Time 12/19/2024 [id number] Please note: Parts of this encounter note have been generated by AI based on audio conversation. Patient consent was required prior to utilizing this technology. Content review was required prior to finalizing the note. [email or web address] Not available 12/19/2024 15:06:39 Reason for Referral None Reported. Results Created Date Observation Date Name Description Value Unit Range Abnormal Flag Note LastModifiedBy Organization Detail LastModifiedTime 12/20/19 25 audio gram No observ ation record ed. BARCODE Not Available 2024 16:09:22 Result Notes None recorded. Problems Name Problem SNOMED Code Status Onset Date Resolution Date Notes Provider Name and Address Organization Details Recorded Time Tinnitus of left ear 28461472215 06 Active 2018 Tinnitus, left ear; Note: Date Diagnosed : 02/12/2019 10:08 AM (H93.12) Not Available [facility] 4 02:21:23 Examinati on of ear Active 2018 Encounter for examinati on of ears and hearing without abnormal findings; Note: Date Diagnosed : 02/12/2019 10:08 AM (Z01.10) Not Available [facility] 4 02:21:33 Abnormal auditory perceptio n 28488767 Active 2024 CAROLYN ZUNIGA, [address],[place] [address], [place], [address] , [facility] 5 13:55:43 Problem Notes None recorded. Procedures Surgical History Date Name Laterality Status Provider Name and Address Organization Details Recorded Time 12/19/2024 Comp Audio with Tymps - 69129 & 39495 completed CAROLYN ZUNIGA, AuD [address] [facility],[place] [address], [place], [address], [facility] 12/19/2024 13:55:30 Imaging Results None recorded. Procedure Notes None recorded. Medical Equipment None Reported. Allergies Allergen ID Allergen Name Allergen Category Reaction Reaction Severity Criticality Documentation Date Start Date Code Code System Note Provider Name and Address Organization Details Recorded Time 61403 Fish (substanc e) food,medi cation other Not available Not available 10/16/2023 29152 1005 SNOMED React ion: unkno wn, unspe cifie d;; Not Available [facility] 4 00:51:33 Medications Name Sig Start Date Stop Date Status Note LastModified by Organization Details LastModified Time albuterol sulfate 2.5 mg/3 mL (0.083 %) solution for nebulizat ion INHALE 1 VIAL IN NEBULIZE R 4 TIMES DAILY NEEDED FOR SHORTNES S OF BREATH AND FOR WHEEZING active Not Available Not Available No t Available prednison e 20 mg tablet TAKE 2 TABLETS BY MOUTH ONCE DAILY FOR 5 DAYS 12/19 completed Not Available Not Available Not Available omeprazol e 40 mg capsule,d elayed release TAKE 1 CAPSULE BY MOUTH ONCE DAILY active Not Available Not Available No t Available quetiapin e 100 mg tablet TAKE 1 TABLET BY MOUTH AT BEDTIME active Not Available Not Available No t Available Concerta 54 mg tablet,ex tended release TAKE 1 TABLET BY MOUTH ONCE DAILY IN THE MORNING active Not Available Not Available No t Available polymyxin B sulfate 10,000 unit-trim ethoprim 1 mg/mL eye drops INSTILL 1 DROP INTO THE EYE(S) EVERY 3 HOURS FOR 7 DAYS. INSTILL WHILE AWAKE. ADMINIST ER NO MORE THAN 6 DOSES IN ONE DAY 12/19 completed Not Available Not Available Not Available epinephri ne 0.3 mg/0.3 mL injection , auto-inje ctor active Medicati on ID: [id number] D uration Value: 15 Brand Name: magda cisse Send Method: E-Prescr ibed Sub s Allowed: subs OK Medic ationGen ericName : magda cisse Not Available Not Available Not Available fluoxetin e 20 mg capsule TAKE 2 CAPSULES BY MOUTH ONCE DAILY active Not Available Not Available No t Available Ventolin HFA 90 mcg/actua tion aerosol inhaler INHALE 1 PUFF BY MOUTH 4 TIMES DAILY NEEDED FOR WHEEZING active Not Available Not Available No t Available Vitals Date Recorded Body height Body mass index (BMI) Body weight Provider Name and Address Organization Details Last Updated DateTime 12/19/2024 165.1 cm 31.3 kg/m2 40021.37 g [facility] 12/19/2024 14:50:23 Social History None recorded. Functional Status Question Answer Note LastModified by Organization D etails LastModified Time What is your level of alcohol consumption? None [email or web address] Information not available 12/19/2024 Mental Status None recorded. Family History Nothing Reported. Medical History Condition Response Anxiety Y Asthma Y Past Encounters Encounter ID Performer Location Encounter Start Date Encounter Closed Date Diagnosis/Indication Diagnosis SNOMED-CT Code Diagnosis ICD10 Code Diagnosis IMO Codes Diagnosis Note [id number] JORY MOTLEY MD [facility] [address] [address] 12/19/2024 13:30:08 12/19/2024 15:14:42 Abnormal auditory perception 86266604 H93.292 [id number] Audiologic al evaluation results:Ri ght ear:Normal hearing with excellent word recognitio n.Left ear:With the exception of a mild loss at 1000 Hz, normal hearing with excellent word recognitio n. Tympanomet ry:Right Ear:Type ALeft Ear:Type A Health Concerns Section Related Observation LastModified by Organization Detai ls LastModified Time None Recorded Concern Status LastModified by Organization Details LastModified Time None Recorded Advance Directives Directive None Recorded Payers Insurance Date Sequence Insurance Name Policy Number Policy Anaya Covered Member ID Anaya Member ID Guarantor Name 12/19/2024 1 [facility] NET PLAN (MEDICAID HMO) TYLER Kauffman [id number] Kayden Kauffman Notes Date Note Type Note Provider Name and Address Organization Details Recorded Time 12/19/2024 text/html 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 audio normal, +jaspreet on left at 4k. The patient is a 34-year-old male presenting with hearing loss in the left ear, identified through longstanding symptoms of hearing impairment primarily under conditions like sleeping on his left side. He recalls childhood tympanostomy tube procedures twice. JORY MOTLEY MD [address] [place] [address], [phone], [facility] - [facility] 12/19/2024 15:08:46
== END 2025-04-23 09:48 | disposition home or self-care (01) ==
LOC: HO.HMCH 09:22
PROVIDERS: PCP Internal Medicine; Visit Provider Internal Medicine
DX: E66.9 Obesity, unspecified (principal); K21.00 Gastro-esophageal reflux disease with esophagitis, without bleeding; J45.20 Mild intermittent asthma, uncomplicated; F41.1 Generalized anxiety disorder; F90.0 Attention-deficit hyperactivity disorder, predominantly inattentive type; Z23 Encounter for immunization; Z68.30 Body mass index [BMI] 30.0-30.9, adult

== ENCOUNTER → 2025-04-23 09:22 | Outpatient (BNVA) | payer OTHER, SELFPAY | PROVIDERS: PCP Internal Medicine; Visit Provider Internal Medicine | DX: Z23 Encounter for immunization (principal); E66.9 Obesity, unspecified; K21.00 Gastro-esophageal reflux disease with esophagitis, without bleeding; J45.20 Mild intermittent asthma, uncomplicated; F41.1 Generalized anxiety disorder; F90.0 Attention-deficit hyperactivity disorder, predominantly inattentive type; Z68.30 Body mass index [BMI] 30.0-30.9, adult | CPT/HCPCS: 90471; 90656; 99212 ==